=== PATIENT | male | born 1945 | race Caucasian/White ===

== ENCOUNTER 2017-11-15 04:43 | Emergency (ER) | payer MEDICARE, BC ==
[2017-11-15 04:51] VITALS: RESP 18
[2017-11-15 05:37] LABS: Appearance,Urine Cloudy (Clear); Bacteria,Urine Rare /hpf; Bilirubin,Urine Negative (Negative); Blood,Urine Large (Negative); Color,Urine Red; Glucose,Urine (UA) Negative (Negative); Ketones,Urine Negative (Negative); Leukocyte Esterase,Urine Small (Negative); Mucus,Urine Rare /hpf; Nitrite,Urine Negative (Negative); PH, Urine 6.5 (5.0-8.0); Protein,Urine 1+ (Negative); RBC,Urine >182 /hpf (0-5); Specific Gravity,Urine 1.019 (1.001-1.035); Squamous Epithelial Cell,Urine 1 /hpf (0-4); WBC,Urine >182 /hpf (0-5)
[2017-11-15 06:10] LABS: Basophils % (A) 1 %; Eosinophils # (A) 0.2 k/uL (0-0.7); Eosinophils % (A) 4 %; HCT 46.2 % (39.0-53.0); HGB 15.3 gm/dL (13.0-17.5); Lymphocytes % (A) 22 %; MCH 33.2 pg (25.0-35.0); MCHC 33.2 g/dL (31.0-37.0); MCV 100.2 fL (80.0-100.0); Mean Platelet Volume 7.1; Monocytes # (A) 0.3 k/uL (0-1.0); Monocytes % (A) 7 %; Neutrophils # (A) 2.9 k/uL (1.3-7.7); Neutrophils % (A) 63 %; Platelet Count 171 k/uL (150-450); RBC 4.61 m/uL (4.30-5.90); RDW 13.8 % (11.5-15.5); WBC 4.6 k/uL (3.8-10.6)
[2017-11-15 06:21] LABS: INR 1.1 (<1.2); Partial Thromboplastin Time 23.6 sec (22.0-30.0); Prothrombin Time 10.3 sec (9.0-12.0)
[2017-11-15 06:23] LABS: Anion Gap 10 mmol/L; Blood Urea Nitrogen 22 mg/dL (9-20); Calcium 9.4 mg/dL (8.4-10.2); Carbon Dioxide 26 mmol/L (22-30); Chloride 106 mmol/L (98-107); Glucose 105 mg/dL (74-99); Potassium 4.3 mmol/L (3.5-5.1); Sodium 142 mmol/L (137-145)
--- NOTE | 2017-11-15 06:26 | ED ---
Male Urogenital HPI - General Chief complaint: Urogenital Stated complaint: Male Time Seen by Provider: 11/15/17 05:34 Source: patient Mode of arrival: ambulatory Limitations: no limitations - History of Present Illness Initial comments: This patient is a 71-year-old man who presents to be evaluated for gross hematuria that started this morning. Patient states that he was using the bathroom this morning and noted that there was bright red blood in the urine. He denies history of this previously. He is not having any abdominal pain. He is denying urinary frequency or dysuria. No noted discharge. The patient denies fever or chills. No abdominal or flank pain. Patient denies use of anticoagulants. MD Complaint: other (Hematuria) Onset/Timin -: hour(s) Radiation: none Severity scale (1-10): 0 Worsens with: none Reports: denies other symptoms, blood in urine - Related Data Previous Rx's Medication Instructions Recorded Ciprofloxacin HCl [Cipro] 500 mg PO Q12HR #14 tablet 11/15/17 Allergies Allergy/AdvReac Type Severity Reaction Status Date / Time No Known Allergies Allergy Verified 11/15/17 04:51 Review of Systems ROS Statement: Those systems with pertinent positive or pertinent negative responses have been documented in the HPI. ROS Other: All systems not noted in ROS Statement are negative. Constitutional: Denies: fever, chills Respiratory: Denies: cough, dyspnea Cardiovascular: Denies: chest pain, palpitations, edema Gastrointestinal: Denies: abdominal pain, vomiting, diarrhea Genitourinary: Reports: hematuria. Denies: dysuria, frequency, discharge, testicular pain Musculoskeletal: Denies: back pain Skin: Denies: rash Hematological/Lymphatic: Denies: easy bleeding Past Medical History Past Medical History: No Reported History History of Any Multi-Drug Resistant Organisms: None Reported Past Surgical History: Appendectomy, Back Surgery, Tonsillectomy Additional Past Surgical History / Comment(s): oral surgery Past Psychological History: No Psychological Hx Reported Smoking Status: Never smoker Past Alcohol Use History: Occasional Past Drug Use History: None Reported General Exam Limitations: no limitations General appearance: alert, in no apparent distress Head exam: Present: atraumatic, normocephalic Respiratory exam: Present: normal lung sounds bilaterally. Absent: respiratory distress, wheezes, rales, rhonchi, stridor Cardiovascular Exam: Present: regular rate, normal rhythm, normal heart sounds. Absent: systolic murmur, diastolic murmur, rubs, gallop GI/Abdominal exam: Present: soft. Absent: distended, tenderness, guarding, rebound, mass Extremities exam: Present: normal inspection, normal capillary refill. Absent: pedal edema, calf tenderness Back exam: Present: normal inspection. Absent: CVA tenderness (R), CVA tenderness (L) Neurological exam: Present: alert Skin exam: Present: warm, dry, intact, normal color. Absent: rash Course Vital Signs 11/15/17 11/15/17 11/15/17 04:47 07:09 07:15 Temperature 97.8 F 98.8 F Pulse Rate 70 60 56 L Respiratory 18 18 18 Rate Blood Pressure 174/97 133/79 135/80 O2 Sat by Pulse 98 97 96 Oximetry Medical Decision Making - Medical Decision Making Patient is 71-year-old man presenting with painless hematuria. He is started on antibiotic course here given the white blood cells in the urine. The patient is otherwise asymptomatic. We discussed the CT findings in some detail. He will follow first with urology, regarding the bladder findings, and then also with the medicine doctor to have MRI of the pancreas finding, or with surgery as needed. Discussed appropriate return parameters as well. - Lab Data Result diagrams: 11/15/17 05:49 11/15/17 05:49 Lab Results 11/15/17 11/15/17 11/15/17 Range/Units 04:55 05:49 05:49 WBC 4.6 (3.8-10.6) k/uL RBC 4.61 (4.30-5.90) m/uL Hgb 15.3 (13.0-17.5) gm/dL Hct 46.2 (39.0-53.0) % MCV 100.2 H (80.0-100.0) fL MCH 33.2 (25.0-35.0) pg MCHC 33.2 (31.0-37.0) g/dL RDW 13.8 (11.5-15.5) % Plt Count 171 (150-450) k/uL Neutrophils % 63 % Lymphocytes % 22 % Monocytes % 7 % Eosinophils % 4 % Basophils % 1 % Neutrophils # 2.9 (1.3-7.7) k/uL Lymphocytes # 1.0 (1.0-4.8) k/uL Monocytes # 0.3 (0-1.0) k/uL Eosinophils # 0.2 (0-0.7) k/uL Basophils # 0.0 (0-0.2) k/uL PT (9.0-12.0) sec INR (<1.2) APTT (22.0-30.0) sec Sodium 142 (137-145) mmol/L Potassium 4.3 (3.5-5.1) mmol/L Chloride 106 (98-107) mmol/L Carbon Dioxide 26 (22-30) mmol/L Anion Gap 10 mmol/L BUN 22 H (9-20) mg/dL Creatinine 0.75 (0.66-1.25) mg/dL Est GFR (CKD-EPI)AfAm >90 (>60 ml/min/1.73 sqM) Est GFR (CKD-EPI)NonAf >90 (>60 ml/min/1.73 sqM) Glucose 105 H (74-99) mg/dL Calcium 9.4 (8.4-10.2) mg/dL Urine Color Red Urine Appearance Cloudy (Clear) Urine pH 6.5 (5.0-8.0) Ur Specific [place] 1.019 (1.001-1.035) Urine Protein 1+ H (Negative) Urine Glucose (UA) Negative (Negative) Urine Ketones Negative (Negative) Urine Blood Large H (Negative) Urine Nitrite Negative (Negative) Urine Bilirubin Negative (Negative) Urine Urobilinogen 2.0 (<2.0) mg/dL Ur Leukocyte Esterase Small H (Negative) Urine RBC >182 H (0-5) /hpf Urine WBC >182 H (0-5) /hpf Ur Squamous Epith Cells 1 (0-4) /hpf Urine Bacteria Rare H (None) /hpf Urine Mucus Rare H (None) /hpf 11/15/17 Range/Units 05:49 WBC (3.8-10.6) k/uL RBC (4.30-5.90) m/uL Hgb (13.0-17.5) gm/dL Hct (39.0-53.0) % MCV (80.0-100.0) fL MCH (25.0-35.0) pg MCHC (31.0-37.0) g/dL RDW (11.5-15.5) % Plt Count (150-450) k/uL Neutrophils % % Lymphocytes % % Monocytes % % Eosinophils % % Basophils % % Neutrophils # (1.3-7.7) k/uL Lymphocytes # (1.0-4.8) k/uL Monocytes # (0-1.0) k/uL Eosinophils # (0-0.7) k/uL Basophils # (0-0.2) k/uL PT 10.3 (9.0-12.0) sec INR 1.1 (<1.2) APTT 23.6 (22.0-30.0) sec Sodium (137-145) mmol/L Potassium (3.5-5.1) mmol/L Chloride (98-107) mmol/L Carbon Dioxide (22-30) mmol/L Anion Gap mmol/L BUN (9-20) mg/dL Creatinine (0.66-1.25) mg/dL Est GFR (CKD-EPI)AfAm (>60 ml/min/1.73 sqM) Est GFR (CKD-EPI)NonAf (>60 ml/min/1.73 sqM) Glucose (74-99) mg/dL Calcium (8.4-10.2) mg/dL Urine Color Urine Appearance (Clear) Urine pH (5.0-8.0) Ur Specific [place] (1.001-1.035) Urine Protein (Negative) Urine Glucose (UA) (Negative) Urine Ketones (Negative) Urine Blood (Negative) Urine Nitrite (Negative) Urine Bilirubin (Negative) Urine Urobilinogen (<2.0) mg/dL Ur Leukocyte Esterase (Negative) Urine RBC (0-5) /hpf Urine WBC (0-5) /hpf Ur Squamous Epith Cells (0-4) /hpf Urine Bacteria (None) /hpf Urine Mucus (None) /hpf Disposition Clinical Impression: Hematuria, Bladder mass, Cystic mass of pancreas Disposition: HOME SELF-CARE Condition: Fair Instructions: Hematuria (ED) Additional Instructions: As we discussed, follow-up with the urologist regarding the blood in the urine and the mass that we are seeing related to the bladder. The cystic mass of the pancreas also requires follow-up. We have provided the number for the surgeon on-call, however your insurance may require that he see their surgeon to further discuss this. Prescriptions: Ciprofloxacin HCl [Cipro] 500 mg PO Q12HR #14 tablet Is patient prescribed a controlled substance at d/c from ED?: No Referrals: Abimael Schneider MD [STAFF PHYSICIAN] - 1-2 days Morteza Foley MD [STAFF PHYSICIAN] - 1-2 days Luis Jacinto MD [REFERRING] - 1-2 days
--- NOTE | 2017-11-15 06:53 | CT ---
EXAM: CT Abdomen and Pelvis Without Intravenous Contrast CLINICAL HISTORY: ITS.REASON CT Reason: Pain TECHNIQUE: Axial computed tomography images of the abdomen and pelvis without intravenous contrast. CTDI is 11.7 mGy and DLP is 579.9 mGy-cm. This CT exam was performed using one or more of the following dose reduction techniques: automated exposure control, adjustment of the mA and/or kV according to patient size, and/or use of iterative reconstruction technique. COMPARISON: None. FINDINGS: Lung bases: Unremarkable. No mass. No consolidation. Mediastinum: Large hiatal hernia. ABDOMEN: Liver: Unremarkable. Gallbladder and bile ducts: Unremarkable. No calcified stones. No ductal dilation. Pancreas: Complex multiloculated cystic lesion in the region the pancreatic head measuring approximately 3.4 x 7.1 cm. No ductal dilation. Spleen: Unremarkable. No splenomegaly. Adrenals: Unremarkable. No mass. Kidneys and ureters: Multiple bilateral renal parapelvic cysts, more prominent on the left. There is also a large right renal cortical cyst measuring up to 5.3 cm with a associated peripheral cyst measuring up to 1.9 cm and then linear calcifications between the 2. Stomach and bowel: Bilateral inguinal hernias, fat-containing the left, containing small bowel on the right. No associated obstruction. Diverticulosis without evidence of diverticulitis. PELVIS: Appendix: Nonvisualization of the appendix. Bladder: Questionable nodular wall thickening versus mass along the right posterior aspect of the bladder wall measuring 1.8 x 2.7 cm. No stones. Reproductive: Enlarged prostate gland measuring up to 5.3 cm. ABDOMEN and PELVIS: Intraperitoneal space: Unremarkable. No free air. No significant fluid collection. Bones/joints: Age-indeterminate mild compression deformity of the T9 vertebral body without bony dorsal displacement. Soft tissues: See above. Vasculature: Unremarkable. No abdominal aortic aneurysm. Lymph nodes: Unremarkable. No enlarged lymph nodes. IMPRESSION: 1. Complex multiloculated cystic lesion in the region of the pancreatic head measuring approximately 3.4 x 7.1 cm. Further characterization with MRI/MRCP with contrast recommended. 2. Questionable nodular wall thickening versus mass along the right posterior aspect of the bladder wall measuring 1.8 x 2.7 cm. Further evaluation recommended. 3. Nonvisualization of the appendix. Please correlate with surgical history. 4. Bilateral inguinal hernias, fat-containing the left, containing small bowel on the right. No associated obstruction. No evidence of bowel inflammation. 5. Age-indeterminate mild compression deformity of the T9 vertebral body without bony dorsal displacement.
[2017-11-15] MEDS ORDERED: LEVOFLOXACIN 750 MG TAB PO STA (07:04)
[2017-11-15 07:09] VITALS: TEMP 98.8
[2017-11-15 07:17] VITALS: BP 135/80; PULSE 56
== END 2017-11-15 07:37 | disposition home or self-care (01) ==
LOC: EC 04:43
DX: K86.2 Cyst of pancreas (principal); N32.9 Bladder disorder, unspecified; Z90.49 Acquired absence of other specified parts of digestive tract
CPT/HCPCS: 36415; 74176; 80048; 81001; 85025; 85610; 85730; 99284

== ENCOUNTER → 2017-11-18 | Outpatient (CLI) | payer BC ==
--- NOTE | 2017-11-18 22:04 | CT ---
EXAMINATION TYPE: CT abdomen pelvis w con DATE OF EXAM: 11/18/2017 COMPARISON: 11/15/2017 INDICATION: Gross hematuria DLP: 2828 mGycm, Automated exposure control for dose reduction was used. CONTRAST: 100 ml mL of Isovue 300. Study performed with Oral Contrast TECHNIQUE: Axial images were obtained from above the diaphragm to the pubic rami in the axial plane a t 5 mm thick sections. Reconstructed images are reviewed on the computer in the coronal plane. FINDINGS: Limited CT sections are obtained the lung bases. The lung bases are clear. There is a large hiatal hernia present. CT ABDOMEN: Liver: Normal Spleen: Normal Pancreas: There is a large hypodensity within the inferior head of the pancreas measuring 7.1 x 6.3 c m. Differential could include pseudocyst formation. Cystic neoplasm and benign cystic processes of th e pancreas are within the differential Adrenal glands: The adrenal glands are normal. Gallbladder: Normal Kidneys: No masses are evident. Mild bilateral hydronephrosis is present. Peripelvic cysts are also p resent better demonstrated with delayed images. There is a large cyst at the inferior pole of the rig ht kidney measuring 5.5 cm. This measures 10 Hounsfield units. Smaller anterior cortical cyst at the mid to inferior pole left kidney measuring 2.5 cm and 0 Hounsfield units. Mild right hydroureter is p resent.. Aorta: Vascular calcification is within the aorta. Inferior vena cava: Normal. CT PELVIS: Loops of bowel within the abdomen and pelvis are normal. There are loops of bowel which are incom pletely distended or lack oral contrast limiting their evaluation. A few diverticuli are within the s igmoid colon. There is a right inguinal hernia which contains contrast-filled loops of small bowel. N o obstruction is evident. Appendix: Not identified. No suspicious inflammatory changes evident Urinary bladder: There is a hyperdense mass within the right posterior lateral urinary bladder. This is estimated to measure 3.0 x 1.7 cm based on current measurements. Genitourinary structures: Prostate is prominent and may has some inferior impression on the urinary b ladder. Osseous structures: No suspicious lytic or sclerotic lesions. Mild facet hypertrophy is present. IMPRESSIONS: 1. Urinary bladder mass right posterior lateral wall. 2. Mild right hydroureter and mild bilateral hydronephrosis. 3. Bilateral peripelvic cysts. 4. Complex cystic area within the head of the pancreas. Postcontrast imaging is nondefinitive. Differ ential remains pseudocyst, Benign and malignant pancreatic cysts.
== END | disposition home or self-care (01) ==
LOC: RADCTMAIN 11:59
PROVIDERS: ATTEND Urology
DX: N32.89 Other specified disorders of bladder (principal); N13.30 Unspecified hydronephrosis; N28.1 Cyst of kidney, acquired; K86.2 Cyst of pancreas
CPT/HCPCS: 74177; Q9967

== ENCOUNTER 2018-03-10 09:43 | Day surgery (SDC) | payer BC ==
[2018-03-08 14:48] VITALS: BMI 26.1
[~2018-03-10 09:43] MED LIST: LACTATED RINGERS 1,000 ML IV SCH; LIDOCAINE 1% 20 ML VIAL (10MG/ML) FOR IV START INTRADERMA PRN
[2018-03-10 10:42] VITALS: RESP 16; TEMP 99
[2018-03-10] MEDS ORDERED: PROPOFOL 10 MG/ML 20 ML VIAL IV ONE (11:25)
--- NOTE | 2018-03-10 11:54 | P.PCN ---
Date of Procedure: 03/10/18 Procedure(s) Performed: BRIEF HISTORY: Patient is a 72-year-old pleasant white male, scheduled for an elective colonoscopy as a part of gaining for colorectal neoplasia. PROCEDURE PERFORMED: Colonoscopy snare polypectomy. PREOPERATIVE DIAGNOSIS: Screening for colon cancer. IV sedation per Anesthesia. PROCEDURE: After informed consent was obtained, the patient, was brought into the endoscopy unit. IV sedation was administered by Anesthesia under continuous monitoring. Digital rectal examination was normal. Initially the Olympus CF- 160 flexible video colonoscope was then inserted in the rectum, gradually advanced into the cecum without any difficulty. Careful examination was performed as the scope was gradually being withdrawn. Ileocecal valve and the appendiceal orifice were visualized and appeared normal. Prep was excellent. In the base of the significant 2 polyps measuring 5 mm in size both of which were removed by snare polypectomy. In the ascending colon there was a 7 mm sessile polyp removed by snare polypectomy. Mucosa of the cecum, ascending colon, transverse colon, descending colon, sigmoid colon, and rectum appeared normal. Scattered sigmoid diverticulosis seen. Retroflexion was performed in the rectum and no lesions were seen. The patient tolerated the procedure well. IMPRESSION: 5 millimeters 2 sessile cecal polyp status post snare polypectomy 7 mm sessile ascending colon polyp status post polypectomy Scattered sigmoidal diverticulosis RECOMMENDATIONS: Findings of this examination were discussed with the patient is well as his family. He was advised to follow with the biopsy results. If the biopsy shows an adenoma he can have a repeat colonoscopy in 3-5 years.
[2018-03-10 12:56] VITALS: BP 169/95; PULSE 66
== END 2018-03-10 13:13 | disposition home or self-care (01) ==
LOC: ORWHC2ENDO 09:43
PROVIDERS: ATTEND Internal Medicine Gastroenterology
DX: Z12.11 Encounter for screening for malignant neoplasm of colon (principal); D12.0 Benign neoplasm of cecum; D12.2 Benign neoplasm of ascending colon; K57.30 Diverticulosis of large intestine without perforation or abscess without bleeding; Z85.51 Personal history of malignant neoplasm of bladder
CPT/HCPCS: 88305; 45385; J2704

== ENCOUNTER → 2020-08-21 | Outpatient (CLI) | payer OTHER ==
[2020-08-21 08:31] LABS: African American GFR (CKD) >90 (>60 ml/min/1.73 sqM); Blood Urea Nitrogen 19 mg/dL (9-20); Non-African American GFR(CKD) 88 (>60 ml/min/1.73 sqM)
--- NOTE | 2020-08-21 10:39 | CT ---
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 Delayed images through the kidneys and bladder were obt ained. Coronal/sagittal reconstructions performed. 3D reconstructions generated on a dedicated [employer] workstation. CT DLP: 2197.5 mGycm Automated exposure control for dose reduction was used. FINDINGS: Heart upper limits of normal in size without pericardial effusion. There is strandy bibasilar atelect asis. No pleural effusion. Sliding hiatal hernia redemonstrated, currently measuring small. Similar fluid along the lower paraes ophageal region of uncertain clinical significance. Slightly low attenuation hepatic parenchyma. There may be mild fatty infiltration. No focal lesion is seen. Portal venous system is patent. Interval cholecystectomy, resection of the patient's cystic pancreatic head mass, probable hepatic or al antrostomy, and gastrojejunostomy. There is dilatation of the jejunum just beyond the gastrojejuno stomy anastomosis up to 4.8 cm, probably on a chronic postsurgical basis. There is some nodular prominence and calcification versus surgical material at the head of the pancre as measuring 3.4 x 2.5 cm, possible blind end of a surgerized loop of small bowel. Follow-up recommen ded to exclude neoplasm. Regular adrenal glands within normal limits. Remainder of the pancreas is atrophic. Spleen enlarged at 15.1 cm, unchanged. Numerous bilateral parapelvic cysts. Cortical cyst measuring 2.9 cm anteriorly from the left kidney a nd large, mildly complex cyst anterior right kidney measuring up to 6.4 cm versus 6.1 cm, previously. Numerous additional subcentimeter hypodensities are present bilaterally suggesting cysts. No suspici ous renal lesion. Symmetric uptake and excretion of contrast from both kidneys. No suspicious filling defect within eit her or collecting system or along the course of either ureter. Aside from the jejunum just after the anastomosis, no additional dilated small bowel. No free fluid o r free air. No mesenteric or retroperitoneal lymphadenopathy. Mild to moderate stool burden. Left-sided colonic diverticulosis, greatest in the proximal sigmoid co ofe. No pericolic inflammatory change. There is a direct right inguinal hernia, small to moderate in size containing mesenteric fat and a co uple loops of nonobstructed small bowel. Mild circumferential bladder wall thickening. Prostate gland is enlarged at 5.2 cm wide. Soft tissue impresses on to the posterior bladder base. The previous bladder wall mass on the right no longer shilpa ntified. Bones: Mild degenerative change of the hips. Mild facet arthropathy lower lumbar spine. Mild anterior wedging T9. Some ankylosis across the posterior elements of the lower thoracic spine. These findings are chronic. IMPRESSION: 1. PREVIOUS RIGHT LATERAL BLADDER MASS IS NO LONGER SEEN. THERE IS MILD BLADDER WALL THICKENING THAT COULD REPRESENT CHRONIC BLADDER WALL HYPERTROPHY, CYSTITIS, OR POSTTREATMENT CHANGE. 2. MULTIPLE CYSTS IN THE BILATERAL KIDNEYS MEASURING UP TO 6.4 CM. THE DOMINANT 6.4 CM CYST IN THE RI GHT KIDNEY IS MILDLY COMPLEX WITH SOME INTERNAL THIN SEPTATIONS AND PREVIOUSLY MEASURED 6.1 CM IN 201 8. PARAPELVIC CYSTS ARE ALSO PRESENT. 3. NO SUSPICIOUS RENAL LESION OR SUSPICIOUS LESION SEEN ALONG THE URETERS. 4. NODULAR SOFT TISSUE DENSITY IN THE REGION OF THE PANCREATIC HEAD MEASURING 3.4 X 2.5 CM SUSPECTED TO REPRESENT THE BLIND END OF A SURGERIZED LOOP OF SMALL BOWEL FOLLOWING RESECTION THE PATIENT'S PREV IOUS CYSTIC PANCREATIC HEAD MASS. 3 - 6 MONTH FOLLOW-UP CT TO ENSURE STABILITY. CONSIDER CORRELATION WITH ANY AVAILABLE OUTSIDE PRIORS THAT WERE PERFORMED AFTER THE PATIENT'S SURGERY. 5. PROSTATOMEGALY AT 5.2 CM. SMALL TO MODERATE SIZED RIGHT INGUINAL HERNIA CONTAINING A COUPLE LOOPS OF NONOBSTRUCTED SMALL BOWEL. LEFT-SIDED COLONIC DIVERTICULOSIS.
== END | disposition home or self-care (01) ==
LOC: RADCTMAIN 07:51
PROVIDERS: ATTEND Urology
DX: N28.89 Other specified disorders of kidney and ureter (principal); N40.0 Benign prostatic hyperplasia without lower urinary tract symptoms; K57.30 Diverticulosis of large intestine without perforation or abscess without bleeding; K40.90 Unilateral inguinal hernia, without obstruction or gangrene, not specified as recurrent
CPT/HCPCS: 82565; 84520; 74178; 36415; 74400; Q9967

== ENCOUNTER → 2023-07-13 | Outpatient (CLI) | payer OTHER, MEDICARE ==
--- NOTE | 2023-07-13 14:28 | XR ---
EXAMINATION TYPE: XR ankle complete RT DATE OF EXAM: 07/13/2023 COMPARISON: None HISTORY: Pain TECHNIQUE: 3 view right ankle FINDINGS: Ankle mortise is intact. No acute fracture or dislocation is evident. Tiny secondary ossifi cation centers inferior to the medial malleolus. Soft tissues appear within normal limits. Vascular c alcification is present. IMPRESSION: 1. No acute osseous abnormality right ankle
== END | disposition home or self-care (01) ==
LOC: RADXRMAIN 13:41
PROVIDERS: ATTEND Family Medicine
DX: M25.571 Pain in right ankle and joints of right foot (principal)

== ENCOUNTER → 2023-08-12 | Outpatient (CLI) | payer OTHER ==
[2023-08-12 16:23] LABS: African American GFR (CKD) 88 (>60 ml/min/1.73 sqM); Blood Urea Nitrogen 30 mg/dL (9-20); Non-African American GFR(CKD) 76 (>60 ml/min/1.73 sqM)
--- NOTE | 2023-08-13 12:05 | CT ---
EXAMINATION TYPE: CT urogram wo/w con CT DLP: 3699 mGycm, Automated exposure control for dose reduction was used. DATE OF EXAM: 08/12/2023 5:24 PM COMPARISON: 08/21/2020. CLINICAL INDICATION:Male, 77 years old with history of C67.9 MALIGNANT NEOPLASM OF BLADDER; PHH, piyush gnant neoplasm of bladder TECHNIQUE: Urogram with imaging of the abdomen and pelvis. Coronal and sagittal reformats were performed. 2D and 3D reconstructions are performed to assist visualization of the urinary tract on a separate workstat ion. Contrast used:100 mL of Isovue 300 without and with IV Contrast, Oral contrast used: None. FINDINGS: LOWER CHEST: No significant findings. GENITOURINARY: RIGHT KIDNEY AND URETER: No hydronephrosis or hydroureter. No renal mass or other lesions. No urothel ial lesions: no filling defect, dilation, stricture or wall thickening. r right renal cystic lesion w ith peripheral calcification measuring 64 x 58 with possible thin septations versus adjacent cysts. N onobstructing calculus measuring 4 mm. LEFT KIDNEY AND URETER: Nonobstructing calculi measuring up to 4 mm. Peripelvic renal cysts noted. Re nal cortical renal cysts also present. No hydronephrosis or hydroureter. No renal mass or other lesio ns. No urothelial lesions: no filling defect, dilation, stricture or wall thickening. URINARY BLADDER: Well distended. Limited evaluation secondary to partial filling of the bladder with excreted IV contrast. No calculi or obvious mass. REPRODUCTIVE: Prostate gland is enlarged up to 5.5 cm transverse dimension. ABDOMEN LIVER: Unremarkable. GALLBLADDER AND BILE DUCTS: Unremarkable PANCREAS: Unremarkable. SPLEEN: Unremarkable. ADRENAL GLANDS: Unremarkable. STOMACH AND BOWEL: . No evidence of bowel obstruction. Postsurgical changes to the gastric lumen. Sca ttered colonic diverticula. PERITONEUM: No evidence of pneumoperitoneum, free fluid, or adenopathy. VASCULATURE: No evidence of aortic aneurysm. MUSCULOSKELETAL: No acute osseous abnormalities LYMPH NODES: No gross evidence for lymphadenopathy. SOFT TISSUE/ABDOMINAL WALL: Bilateral fat-containing inguinal hernias. IMPRESSION: 1. No evidence of urolithiasis or renal/urothelial neoplasm. No bladder wall mass identified. 2. Nonobstructing bilateral renal foci. 3. Bosniak type II right renal cyst with peripheral calcification. 4. Prostatomegaly, correlate with serum PSA. 5. Colonic diverticulosis.
== END | disposition home or self-care (01) ==
LOC: RADCTMAIN 15:27
PROVIDERS: ATTEND Urology
DX: K57.30 Diverticulosis of large intestine without perforation or abscess without bleeding (principal); C67.9 Malignant neoplasm of bladder, unspecified; N40.0 Benign prostatic hyperplasia without lower urinary tract symptoms; N28.1 Cyst of kidney, acquired; N28.89 Other specified disorders of kidney and ureter
CPT/HCPCS: 82565; 84520; 74178; 36415; 74400; Q9967

== ENCOUNTER 2023-08-14 18:32 | Inpatient (IN) | payer OTHER, MEDICARE ==
--- NOTE | 2023-08-14 19:15 | ED ---
General Adult HPI - General Source: patient, RN notes reviewed Mode of arrival: ambulatory Limitations: no limitations <Shantel Beavers - Last Filed: 08/14/23 19:22> - General Source: RN notes reviewed, old records reviewed, Caregiver Mode of arrival: ambulatory Limitations: no limitations - History of Present Illness -: week(s) Consistency: constant Improves with: none Worsens with: none Associated Symptoms: confusion, shortness of breath <Neeraj Wagoner - Last Filed: 08/24/23 23:48> - General Stated complaint: alt mental Time Seen by Provider: 08/14/23 19:12 - History of Present Illness Initial comments: Patient is a 77-year-old male presenting to the ER with a chief complaint of altered mental status. providing past medical history and HPI. She reports he was diagnosed with pneumonia a week ago. Prescribed steroids and amoxicillin. He is still currently taking amoxicillin. She states yesterday he did not get out of bed which is very unlike him. Patient is also complaining of abdominal pain. (Shantel Beavers) This is a 77-year-old male to the ER for evaluation of altered mental status, recent diagnosed with pneumonia persistently feeling well currently on amoxicillin but not acting himself per family. (Neeraj Wagoner) - Related Data Home Medications Medication Instructions Recorded Confirmed Aspirin [Adult Low Dose Aspirin EC] 81 mg PO DAILY 08/04/22 08/14/23 Tamsulosin [Flomax] 0.4 mg PO DAILY 08/04/22 08/15/23 Betamethasone Dipropionate 1 applic TOPICAL DIRECTED PRN 08/14/23 08/14/23 [Diprolene 0.05% Cream (GEQ)] Cholecalciferol [Vitamin D3 (25 25 mcg PO BID 08/14/23 08/14/23 Mcg = 1000 Iu)] Previous Rx's Medication Instructions Recorded Amoxic-Pot Clav 875-125Mg 1 tab PO BID 10 Days #20 tab 08/18/23 [Augmentin 875-125] Atorvastatin [Lipitor] 40 mg PO DAILY #30 tablet 08/18/23 Clopidogrel [Plavix] 75 mg PO DAILY #30 tab 08/18/23 Allergies Allergy/AdvReac Type Severity Reaction Status Date / Time No Known Allergies Allergy Verified 08/14/23 22:15 Review of Systems ROS Other: All systems not noted in ROS Statement are negative. <Shantel Beavers - Last Filed: 08/14/23 19:22> ROS Other: All systems not noted in ROS Statement are negative. <Neeraj Wagoner - Last Filed: 08/24/23 23:48> ROS Statement: Those systems with pertinent positive or pertinent negative responses have been documented in the HPI. Past Medical History Past Medical History: Cancer Additional Past Medical History / Comment(s): BLADDER CANCER History of Any Multi-Drug Resistant Organisms: None Reported Past Surgical History: Appendectomy, Back Surgery, Bladder Surgery, Tonsillectomy Additional Past Surgical History / Comment(s): oral surgery Past Anesthesia/Blood Transfusion Reactions: No Reported Reaction Past Psychological History: No Psychological Hx Reported Past Alcohol Use History: Occasional Past Drug Use History: None Reported - Past Family History Father Family Medical History: Cancer Additional Family Medical History / Comment(s): BLADDER CANCER <Shantel Beavers - Last Filed: 08/14/23 19:22> General Exam <DellShantel yoo - Last Filed: 08/14/23 19:22> General appearance: alert, in no apparent distress Head exam: Present: atraumatic, normocephalic, normal inspection Eye exam: Present: normal appearance, PERRL, EOMI. Absent: scleral icterus, conjunctival injection, periorbital swelling ENT exam: Present: normal exam, mucous membranes moist Neck exam: Present: normal inspection. Absent: tenderness, meningismus, lymphadenopathy Respiratory exam: Present: normal lung sounds bilaterally. Absent: respiratory distress, wheezes, rales, rhonchi, stridor Cardiovascular Exam: Present: regular rate, normal rhythm, normal heart sounds. Absent: systolic murmur, diastolic murmur, rubs, gallop, clicks GI/Abdominal exam: Present: soft, normal bowel sounds. Absent: distended, tenderness, guarding, rebound, rigid Extremities exam: Present: normal inspection, full ROM, normal capillary refill. Absent: tenderness, pedal edema, joint swelling, calf tenderness Back exam: Present: normal inspection Neurological exam: Present: alert, oriented X3, CN II-XII intact Psychiatric exam: Present: normal affect, normal mood Skin exam: Present: warm, dry, intact, normal color. Absent: rash <Neeraj Wagoner - Last Filed: 08/24/23 23:48> - General Exam Comments Initial Comments: Visual Physical Exam Vital signs reviewed General: Ill-appearing, mildly confused Head: Normocephalic, atraumatic Eyes: PERRLA, EOMI ENT: Airway patent Chest: Nonlabored breathing Skin: No visual rash, normal skin tone Neuro: Alert and oriented 3 Musculoskeletal: No gross abnormalities (Shantel Beavers) Course <Neeraj Wagoner - Last Filed: 08/24/23 23:48> Vital Signs 08/14/23 08/14/23 08/14/23 19:08 21:20 21:48 Temperature 103.0 F H Pulse Rate 77 67 Pulse Rate [ Pulse Oximetery ] Respiratory 20 20 18 Rate Blood Pressure 143/70 124/63 Blood Pressure [Left Arm Supine] O2 Sat by Pulse 96 94 L Oximetry 08/14/23 08/14/23 08/15/23 23:16 23:58 04:00 Temperature 100.0 F H Pulse Rate 58 L 62 Pulse Rate [ Pulse Oximetery ] Respiratory 16 18 Rate Blood Pressure 110/64 129/73 Blood Pressure [Left Arm Supine] O2 Sat by Pulse 96 96 Oximetry 08/15/23 08/15/23 08/15/23 08:35 11:35 15:46 Temperature 99.3 F 99.0 F Pulse Rate Pulse Rate [ 65 58 L Pulse Oximetery ] Respiratory 20 20 Rate Blood Pressure Blood Pressure 142/78 140/69 [Left Arm Supine] O2 Sat by Pulse 96 96 95 Oximetry 08/15/23 08/16/23 08/16/23 20:00 00:00 04:15 Temperature 98.8 F 99.1 F 100.3 F H Pulse Rate Pulse Rate [ 58 L 62 58 L Pulse Oximetery ] Respiratory 20 20 20 Rate Blood Pressure Blood Pressure 135/65 143/62 139/72 [Left Arm Supine] O2 Sat by Pulse 93 L 93 L 94 L Oximetry 08/16/23 08/16/23 08/16/23 06:00 08:00 13:47 Temperature 99.3 F 98.8 F Pulse Rate Pulse Rate [ 53 L 53 L Pulse Oximetery ] Respiratory 17 17 Rate Blood Pressure Blood Pressure 111/61 110/56 [Left Arm Supine] O2 Sat by Pulse 97 Oximetry 08/16/23 08/16/23 16:04 17:46 Temperature 101.1 F H 99.1 F Pulse Rate 56 L 51 L Pulse Rate [ Pulse Oximetery ] Respiratory 20 20 Rate Blood Pressure 120/66 108/59 Blood Pressure [Left Arm Supine] O2 Sat by Pulse 97 93 L Oximetry - Reevaluation(s) Reevaluation #1: 08/14/23 20:37 Medical records reviewed (Neeraj Wagoner) Reevaluation #2: 08/14/23 20:37 Patient symptoms are improved (Neeraj Wagoner) Reevaluation #3: 08/14/23 20:38 Patient informed of results and questions answered (Neeraj Wagoner) Reevaluation #4: Was pt. sent in by a medical professional or institution ([facility], [employer], urgent care, hospital, or retirement...) When possible be specific @ -no Did you speak to anyone other than the patient for history (EMS, parent, family, police, friend...)? What history was obtained from this source @ -no Did you review nursing and triage notes (agree or disagree)? Why? @ -agree Are old charts reviewed (outside hosp., previous admission, EMS record, old EKG, old radiological studies, urgent care reports/EKG's, retirement records)? Report findings @ -yes Differential Diagnosis (chest pain, altered mental status, abdominal pain women, abdominal pain men, vaginal bleeding, weakness, fever, dyspnea, syncope, headache, dizziness, GI bleed, back pain, seizure, CVA, palpatations, mental health, musculoskeletal)? @ -prior EKG interpreted by me (3pts min.). @ -yes X-rays interpreted by me (1pt min.). @ -yes negative for acute disease CT interpreted by me (1pt min.). @ -no U/S interpreted by me (1pt. min.). @ -no What testing was considered but not performed or refused? (CT, X-rays, U/S, labs)? Why? @ -none What meds were considered but not given or refused? Why? @ -none Did you discuss the management of the patient with other professionals (professionals i.e. , [facility], [employer], lab, RT, psych nurse, social worker aide, salvage supervisor, teacher, family preservation officer, case loader operator)? Give summary @ -no Was smoking cessation discussed for >3mins.? @ -no Was critical care preformed (if so, how long)? @ -no Were there social determinants of health that impacted care today? How? (Homelessness, low income, unemployed, alcoholism, drug addiction, transportation, low edu. Level, literacy, decrease access to med. care, usp, rehab)? @ -none Was there de-escalation of care discussed even if they declined (Discuss DNR or withdrawal of care, Hospice)? DNR status @ -no What co-morbidities impacted this encounter? (DM, HTN, Smoking, COPD, CAD, Cancer, CVA, ARF, Chemo, Hep., AIDS, mental health diagnosis, sleep apnea, morbid obesity)? @ -none Was patient admitted / discharged? Hospital course, mention meds given and route, prescriptions, significant lab abnormalities, going to OR and other pertinent info. @ - 77 male to ER for altered mental status does have significant fever here in the ER. Patient will be admitted for fever control and monitoring of possibility of recent stroke and CVA secondary to CT scan findings subacute, not a tPA candidate secondary to unknown onset Admitted Undiagnosed new problem with uncertain prognosis? @ -no Drug Therapy requiring intensive monitoring for toxicity (Heparin, Nitro, Insulin, Cardizem)? @ -no Were any procedures done? @ -no Diagnosis/symptom? @ -Fever and sepsis with Acute, or Chronic, or Acute on Chronic? @ -Acute Uncomplicated (without systemic symptoms) or Complicated (systemic symptoms)? @ -Complicated Side effects of treatment? @ -no Exacerbation, Progression, or Severe Exacerbation? @ -exacerbation Poses a threat to life or bodily function? How? (Chest pain, USA, HI, pneumonia, PE, COPD, DKA, ARF, appy, cholecystitis, CVA, Diverticulitis, Homicidal, Suicidal, threat to staff... and all critical care pts) @ -yes extremes of age with fever (Neeraj Wagoenr) Reevaluation #5: Differential Fever: Pneumonia, viral URI, endocarditis, myocarditis, pericarditis, otitis, si nusitis, peritonsillar Abscess, retropharyngeal Abscess, epiglottitis, peritonitis, appendicitis, Malrey cystitis, diverticulitis, hepatitis, colitis, UTI, PID, TOA, pyelonephritis, prostatitis, epididymitis, meningitis, encephalitis, pulmonary embolism, CVA, thyroid storm, pancreatitis, adrenal sadie is, cavernous sinus thrombosis, this is not meant to be an all-inclusive list. Differential Weakness: Hypoglycemia, shock, sepsis, hyponatremia, anemia, infection, HI, ETOH, adverse medicine reaction, overdose, stroke, this is not meant to be an all-inclusive list. Differential Altered Mental Status: Hypoglycemia, DKA, hypercapnia, ETOH, overdose, CO poisoning, trauma, myxedema coma, HTN encephalopathy, infection, encephalitis, psychosis, intercranial hemorrhage, hepatic encephalopathy, meningitis, CVA, this is not meant to be an all-inclusive list (Neeraj Wagoner) - Consultations Consultation #1: Poke with sound who agrees to admit this patient (Neeraj Wagoner) EKG Findings - EKG Comments: EKG Findings:: EKG is sinus 76 VT 168 QRS 107 QTc 399 - EKG Results: EKG: interpreted by ERMD <Neeraj Wagoner - Last Filed: 08/24/23 23:48> Medical Decision Making <Shantel Beavers - Last Filed: 08/14/23 19:22> - Lab Data Result diagrams: 08/18/23 07:48 08/18/23 07:48 - EKG Data -: EKG Interpreted by Vt - Radiology Data Radiology results: report reviewed (CT brain is negative for acute disease, chest x-ray is negative for acute disease), image reviewed <Neeraj Wagoner - Last Filed: 08/24/23 23:48> - Medical Decision Making I performed the quick note portion of this chart. Electronically signed by Shantel Beavers PA-C (Shantel Beavers) 77 male to ER for altered mental status does have significant fever here in the ER. Patient will be admitted for fever control and monitoring of possibility of recent stroke and CVA secondary to CT scan findings subacute, not a tPA candidate secondary to unknown onset (Neeraj Wagoner) - Lab Data Lab Results 08/14/23 08/14/23 08/14/23 Range/Units 19:10 19:35 19:35 WBC 13.6 H (3.8-10.6) k/uL RBC 4.55 (4.30-5.90) m/uL Hgb 15.3 (13.0-17.5) gm/dL Hct 46.1 (39.0-53.0) % MCV 101.4 H (80.0-100.0) fL MCH 33.8 (25.0-35.0) pg MCHC 33.3 (31.0-37.0) g/dL RDW 13.0 (11.5-15.5) % Plt Count 185 (150-450) k/uL MPV 9.3 Neutrophils % % Lymphocytes % % Monocytes % % Eosinophils % % Basophils % % Neutrophils # (1.3-7.7) k/uL Lymphocytes # (1.0-4.8) k/uL Monocytes # (0-1.0) k/uL Eosinophils # (0-0.7) k/uL Basophils # (0-0.2) k/uL Macrocytosis Sodium (137-145) mmol/L Potassium (3.5-5.1) mmol/L Chloride (98-107) mmol/L Carbon Dioxide (22-30) mmol/L Anion Gap mmol/L BUN (9-20) mg/dL Creatinine (0.66-1.25) mg/dL Est GFR (CKD-EPI)AfAm (>60 ml/min/1.73 sqM) Est GFR (CKD-EPI)NonAf (>60 ml/min/1.73 sqM) Glucose (74-99) mg/dL Estimated Ave Glu mg/dL mg/dL Hemoglobin A1c (<=6.0) % Osmolality (275-295) mOsm/kg Plasma Lactic Acid Fox 1.4 (0.7-2.0) mmol/L Calcium (8.4-10.2) mg/dL Phosphorus (2.5-4.5) mg/dL Magnesium (1.6-2.3) mg/dL Total Bilirubin (0.2-1.3) mg/dL AST (17-59) U/L ALT (4-49) U/L Alkaline Phosphatase (38-126) U/L C-Reactive Protein (<1.0) mg/dL NT-Pro-B Natriuret Pep pg/mL Total Protein (6.3-8.2) g/dL Albumin (3.5-5.0) g/dL Triglycerides (0.00-149.00) mg/dL Cholesterol (0.00-200.00) mg/dL LDL Cholesterol, Calc (0.0-131.0) mg/dL VLDL Cholesterol, Calc (5.00-40.00) mg/dL HDL Cholesterol (40.00-60.00) mg/dL Cholesterol/HDL Ratio Ratio Lipase (23-300) U/L Vitamin B12 (200.0-944.0) pg/mL Folate (4.40-31.00) ng/mL Procalcitonin (0.02-0.09) ng/mL TSH (0.465-4.680) mIU/L Urine Color Urine Appearance (Clear) Urine pH (5.0-8.0) Ur Specific [place] (1.001-1.035) Urine Protein (Negative) Urine Glucose (UA) (Negative) Urine Ketones (Negative) Urine Blood (Negative) Urine Nitrite (Negative) Urine Bilirubin (Negative) Urine Urobilinogen (<2.0) mg/dL Ur Leukocyte Esterase (Negative) Urine RBC (0-5) /hpf Urine WBC (0-5) /hpf Urine Mucus (None) /hpf Urine Osmolality (400-1100) mOsm/kg Ur Random Sodium (40-220) mmol/L Influenza Type A (PCR) Not Detected (Not Detectd) Influenza Type B (PCR) Not Detected (Not Detectd) RSV (PCR) Not Detected (Not Detectd) SARS-CoV-2 (PCR) Not Detected (Not Detectd) 08/14/23 08/14/23 08/15/23 Range/Units 20:30 20:30 00:49 WBC (3.8-10.6) k/uL RBC (4.30-5.90) m/uL Hgb (13.0-17.5) gm/dL Hct (39.0-53.0) % MCV (80.0-100.0) fL MCH (25.0-35.0) pg MCHC (31.0-37.0) g/dL RDW (11.5-15.5) % Plt Count (150-450) k/uL MPV Neutrophils % % Lymphocytes % % Monocytes % % Eosinophils % % Basophils % % Neutrophils # (1.3-7.7) k/uL Lymphocytes # (1.0-4.8) k/uL Monocytes # (0-1.0) k/uL Eosinophils # (0-0.7) k/uL Basophils # (0-0.2) k/uL Macrocytosis Sodium 130 L (137-145) mmol/L Potassium 4.2 (3.5-5.1) mmol/L Chloride 97 L (98-107) mmol/L Carbon Dioxide 25 (22-30) mmol/L Anion Gap 8 mmol/L BUN 24 H (9-20) mg/dL Creatinine 0.89 (0.66-1.25) mg/dL Est GFR (CKD-EPI)AfAm >90 (>60 ml/min/1.73 sqM) Est GFR (CKD-EPI)NonAf 83 (>60 ml/min/1.73 sqM) Glucose 161 H (74-99) mg/dL Estimated Ave Glu mg/dL mg/dL Hemoglobin A1c (<=6.0) % Osmolality (275-295) mOsm/kg Plasma Lactic Acid Fox (0.7-2.0) mmol/L Calcium 8.9 (8.4-10.2) mg/dL Phosphorus 3.3 (2.5-4.5) mg/dL Magnesium 2.1 (1.6-2.3) mg/dL Total Bilirubin 2.2 H (0.2-1.3) mg/dL AST 22 (17-59) U/L ALT 24 (4-49) U/L Alkaline Phosphatase 72 (38-126) U/L C-Reactive Protein (<1.0) mg/dL NT-Pro-B Natriuret Pep 631 pg/mL Total Protein 6.7 (6.3-8.2) g/dL Albumin 4.2 (3.5-5.0) g/dL Triglycerides (0.00-149.00) mg/dL Cholesterol (0.00-200.00) mg/dL LDL Cholesterol, Calc (0.0-131.0) mg/dL VLDL Cholesterol, Calc (5.00-40.00) mg/dL HDL Cholesterol (40.00-60.00) mg/dL Cholesterol/HDL Ratio Ratio Lipase (23-300) U/L Vitamin B12 (200.0-944.0) pg/mL Folate (4.40-31.00) ng/mL Procalcitonin 0.06 (0.02-0.09) ng/mL TSH 0.897 (0.465-4.680) mIU/L Urine Color Yellow Urine Appearance Clear (Clear) Urine pH 6.0 (5.0-8.0) Ur Specific [place] 1.024 (1.001-1.035) Urine Protein Trace H (Negative) Urine Glucose (UA) 1+ H (Negative) Urine Ketones Negative (Negative) Urine Blood Trace H (Negative) Urine Nitrite Negative (Negative) Urine Bilirubin Negative (Negative) Urine Urobilinogen <2.0 (<2.0) mg/dL Ur Leukocyte Esterase Negative (Negative) Urine RBC 3 (0-5) /hpf Urine WBC 1 (0-5) /hpf Urine Mucus Few H (None) /hpf Urine Osmolality (400-1100) mOsm/kg Ur Random Sodium (40-220) mmol/L Influenza Type A (PCR) (Not Detectd) Influenza Type B (PCR) (Not Detectd) RSV (PCR) (Not Detectd) SARS-CoV-2 (PCR) (Not Detectd) 08/15/23 08/15/23 08/15/23 Range/Units 14:32 14:32 14:32 WBC 11.4 H (3.8-10.6) k/uL RBC 4.08 L (4.30-5.90) m/uL Hgb 13.7 (13.0-17.5) gm/dL Hct 41.7 (39.0-53.0) % MCV 102.3 H (80.0-100.0) fL MCH 33.6 (25.0-35.0) pg MCHC 32.8 (31.0-37.0) g/dL RDW 12.9 (11.5-15.5) % Plt Count 149 L (150-450) k/uL MPV 8.5 Neutrophils % 93 % Lymphocytes % 3 % Monocytes % 3 % Eosinophils % 0 % Basophils % 0 % Neutrophils # 10.6 H (1.3-7.7) k/uL Lymphocytes # 0.4 L (1.0-4.8) k/uL Monocytes # 0.3 (0-1.0) k/uL Eosinophils # 0.0 (0-0.7) k/uL Basophils # 0.0 (0-0.2) k/uL Macrocytosis Slight Sodium 130 L (137-145) mmol/L Potassium 4.0 (3.5-5.1) mmol/L Chloride 101 (98-107) mmol/L Carbon Dioxide 22 (22-30) mmol/L Anion Gap 7 mmol/L BUN 25 H (9-20) mg/dL Creatinine 0.80 (0.66-1.25) mg/dL Est GFR (CKD-EPI)AfAm >90 (>60 ml/min/1.73 sqM) Est GFR (CKD-EPI)NonAf 87 (>60 ml/min/1.73 sqM) Glucose 132 H (74-99) mg/dL Estimated Ave Glu mg/dL 128 mg/dL Hemoglobin A1c 6.1 H (<=6.0) % Osmolality (275-295) mOsm/kg Plasma Lactic Acid Fox (0.7-2.0) mmol/L Calcium 7.8 L (8.4-10.2) mg/dL Phosphorus 2.4 L (2.5-4.5) mg/dL Magnesium 2.1 (1.6-2.3) mg/dL Total Bilirubin 1.2 (0.2-1.3) mg/dL AST 19 (17-59) U/L ALT 18 (4-49) U/L Alkaline Phosphatase 62 (38-126) U/L C-Reactive Protein (<1.0) mg/dL NT-Pro-B Natriuret Pep pg/mL Total Protein 5.3 L (6.3-8.2) g/dL Albumin 2.8 L (3.5-5.0) g/dL Triglycerides 48.50 (0.00-149.00) mg/dL Cholesterol 75.00 (0.00-200.00) mg/dL LDL Cholesterol, Calc 23.1 (0.0-131.0) mg/dL VLDL Cholesterol, Calc 9.70 (5.00-40.00) mg/dL HDL Cholesterol 42.20 (40.00-60.00) mg/dL Cholesterol/HDL Ratio 1.78 Ratio Lipase 20 L (23-300) U/L Vitamin B12 (200.0-944.0) pg/mL Folate (4.40-31.00) ng/mL Procalcitonin (0.02-0.09) ng/mL TSH (0.465-4.680) mIU/L Urine Color Urine Appearance (Clear) Urine pH (5.0-8.0) Ur Specific [place] (1.001-1.035) Urine Protein (Negative) Urine Glucose (UA) (Negative) Urine Ketones (Negative) Urine Blood (Negative) Urine Nitrite (Negative) Urine Bilirubin (Negative) Urine Urobilinogen (<2.0) mg/dL Ur Leukocyte Esterase (Negative) Urine RBC (0-5) /hpf Urine WBC (0-5) /hpf Urine Mucus (None) /hpf Urine Osmolality (400-1100) mOsm/kg Ur Random Sodium (40-220) mmol/L Influenza Type A (PCR) (Not Detectd) Influenza Type B (PCR) (Not Detectd) RSV (PCR) (Not Detectd) SARS-CoV-2 (PCR) (Not Detectd) 08/15/23 08/15/23 08/16/23 Range/Units 14:32 14:32 06:36 WBC 10.4 (3.8-10.6) k/uL RBC 3.62 L (4.30-5.90) m/uL Hgb 12.3 L (13.0-17.5) gm/dL Hct 36.5 L (39.0-53.0) % MCV 100.9 H (80.0-100.0) fL MCH 34.1 (25.0-35.0) pg MCHC 33.8 (31.0-37.0) g/dL RDW 12.8 (11.5-15.5) % Plt Count 146 L (150-450) k/uL MPV 8.6 Neutrophils % 84 % Lymphocytes % 7 % Monocytes % 6 % Eosinophils % 0 % Basophils % 0 % Neutrophils # 8.7 H (1.3-7.7) k/uL Lymphocytes # 0.8 L (1.0-4.8) k/uL Monocytes # 0.7 (0-1.0) k/uL Eosinophils # 0.0 (0-0.7) k/uL Basophils # 0.0 (0-0.2) k/uL Macrocytosis Sodium (137-145) mmol/L Potassium (3.5-5.1) mmol/L Chloride (98-107) mmol/L Carbon Dioxide (22-30) mmol/L Anion Gap mmol/L BUN (9-20) mg/dL Creatinine (0.66-1.25) mg/dL Est GFR (CKD-EPI)AfAm (>60 ml/min/1.73 sqM) Est GFR (CKD-EPI)NonAf (>60 ml/min/1.73 sqM) Glucose (74-99) mg/dL Estimated Ave Glu mg/dL mg/dL Hemoglobin A1c (<=6.0) % Osmolality (275-295) mOsm/kg Plasma Lactic Acid Fox (0.7-2.0) mmol/L Calcium (8.4-10.2) mg/dL Phosphorus (2.5-4.5) mg/dL Magnesium (1.6-2.3) mg/dL Total Bilirubin (0.2-1.3) mg/dL AST (17-59) U/L ALT (4-49) U/L Alkaline Phosphatase (38-126) U/L C-Reactive Protein (<1.0) mg/dL NT-Pro-B Natriuret Pep pg/mL Total Protein (6.3-8.2) g/dL Albumin (3.5-5.0) g/dL Triglycerides (0.00-149.00) mg/dL Cholesterol (0.00-200.00) mg/dL LDL Cholesterol, Calc (0.0-131.0) mg/dL VLDL Cholesterol, Calc (5.00-40.00) mg/dL HDL Cholesterol (40.00-60.00) mg/dL Cholesterol/HDL Ratio Ratio Lipase (23-300) U/L Vitamin B12 395.0 (200.0-944.0) pg/mL Folate 12.10 (4.40-31.00) ng/mL Procalcitonin (0.02-0.09) ng/mL TSH (0.465-4.680) mIU/L Urine Color Urine Appearance (Clear) Urine pH (5.0-8.0) Ur Specific [place] (1.001-1.035) Urine Protein (Negative) Urine Glucose (UA) (Negative) Urine Ketones (Negative) Urine Blood (Negative) Urine Nitrite (Negative) Urine Bilirubin (Negative) Urine Urobilinogen (<2.0) mg/dL Ur Leukocyte Esterase (Negative) Urine RBC (0-5) /hpf Urine WBC (0-5) /hpf Urine Mucus (None) /hpf Urine Osmolality (400-1100) mOsm/kg Ur Random Sodium (40-220) mmol/L Influenza Type A (PCR) (Not Detectd) Influenza Type B (PCR) (Not Detectd) RSV (PCR) (Not Detectd) SARS-CoV-2 (PCR) (Not Detectd) 08/16/23 08/16/23 08/16/23 Range/Units 06:36 06:36 06:36 WBC (3.8-10.6) k/uL RBC (4.30-5.90) m/uL Hgb (13.0-17.5) gm/dL Hct (39.0-53.0) % MCV (80.0-100.0) fL MCH (25.0-35.0) pg MCHC (31.0-37.0) g/dL RDW (11.5-15.5) % Plt Count (150-450) k/uL MPV Neutrophils % % Lymphocytes % % Monocytes % % Eosinophils % % Basophils % % Neutrophils # (1.3-7.7) k/uL Lymphocytes # (1.0-4.8) k/uL Monocytes # (0-1.0) k/uL Eosinophils # (0-0.7) k/uL Basophils # (0-0.2) k/uL Macrocytosis Sodium 128 L (137-145) mmol/L Potassium 3.5 (3.5-5.1) mmol/L Chloride 103 (98-107) mmol/L Carbon Dioxide 21 L (22-30) mmol/L Anion Gap 4 mmol/L BUN 25 H (9-20) mg/dL Creatinine 0.78 (0.66-1.25) mg/dL Est GFR (CKD-EPI)AfAm >90 (>60 ml/min/1.73 sqM) Est GFR (CKD-EPI)NonAf 88 (>60 ml/min/1.73 sqM) Glucose 125 H (74-99) mg/dL Estimated Ave Glu mg/dL mg/dL Hemoglobin A1c (<=6.0) % Osmolality 281 (275-295) mOsm/kg Plasma Lactic Acid Fox (0.7-2.0) mmol/L Calcium 7.6 L (8.4-10.2) mg/dL Phosphorus (2.5-4.5) mg/dL Magnesium (1.6-2.3) mg/dL Total Bilirubin 1.3 (0.2-1.3) mg/dL AST 19 (17-59) U/L ALT 16 (4-49) U/L Alkaline Phosphatase 56 (38-126) U/L C-Reactive Protein 16.6 H (<1.0) mg/dL NT-Pro-B Natriuret Pep pg/mL Total Protein 4.7 L (6.3-8.2) g/dL Albumin 2.5 L (3.5-5.0) g/dL Triglycerides (0.00-149.00) mg/dL Cholesterol (0.00-200.00) mg/dL LDL Cholesterol, Calc (0.0-131.0) mg/dL VLDL Cholesterol, Calc (5.00-40.00) mg/dL HDL Cholesterol (40.00-60.00) mg/dL Cholesterol/HDL Ratio Ratio Lipase (23-300) U/L Vitamin B12 (200.0-944.0) pg/mL Folate (4.40-31.00) ng/mL Procalcitonin 0.13 H (0.02-0.09) ng/mL TSH (0.465-4.680) mIU/L Urine Color Urine Appearance (Clear) Urine pH (5.0-8.0) Ur Specific [place] (1.001-1.035) Urine Protein (Negative) Urine Glucose (UA) (Negative) Urine Ketones (Negative) Urine Blood (Negative) Urine Nitrite (Negative) Urine Bilirubin (Negative) Urine Urobilinogen (<2.0) mg/dL Ur Leukocyte Esterase (Negative) Urine RBC (0-5) /hpf Urine WBC (0-5) /hpf Urine Mucus (None) /hpf Urine Osmolality (400-1100) mOsm/kg Ur Random Sodium (40-220) mmol/L Influenza Type A (PCR) (Not Detectd) Influenza Type B (PCR) (Not Detectd) RSV (PCR) (Not Detectd) SARS-CoV-2 (PCR) (Not Detectd) 08/16/23 08/16/23 Range/Units 15:30 15:30 WBC (3.8-10.6) k/uL RBC (4.30-5.90) m/uL Hgb (13.0-17.5) gm/dL Hct (39.0-53.0) % MCV (80.0-100.0) fL MCH (25.0-35.0) pg MCHC (31.0-37.0) g/dL RDW (11.5-15.5) % Plt Count (150-450) k/uL MPV Neutrophils % % Lymphocytes % % Monocytes % % Eosinophils % % Basophils % % Neutrophils # (1.3-7.7) k/uL Lymphocytes # (1.0-4.8) k/uL Monocytes # (0-1.0) k/uL Eosinophils # (0-0.7) k/uL Basophils # (0-0.2) k/uL Macrocytosis Sodium (137-145) mmol/L Potassium (3.5-5.1) mmol/L Chloride (98-107) mmol/L Carbon Dioxide (22-30) mmol/L Anion Gap mmol/L BUN (9-20) mg/dL Creatinine (0.66-1.25) mg/dL Est GFR (CKD-EPI)AfAm (>60 ml/min/1.73 sqM) Est GFR (CKD-EPI)NonAf (>60 ml/min/1.73 sqM) Glucose (74-99) mg/dL Estimated Ave Glu mg/dL mg/dL Hemoglobin A1c (<=6.0) % Osmolality (275-295) mOsm/kg Plasma Lactic Acid [place] (0.7-2.0) mmol/L Calcium (8.4-10.2) mg/dL Phosphorus (2.5-4.5) mg/dL Magnesium (1.6-2.3) mg/dL Total Bilirubin (0.2-1.3) mg/dL AST (17-59) U/L ALT (4-49) U/L Alkaline Phosphatase (38-126) U/L C-Reactive Protein (<1.0) mg/dL NT-Pro-B Natriuret Pep pg/mL Total Protein (6.3-8.2) g/dL Albumin (3.5-5.0) g/dL Triglycerides (0.00-149.00) mg/dL Cholesterol (0.00-200.00) mg/dL LDL Cholesterol, Calc (0.0-131.0) mg/dL VLDL Cholesterol, Calc (5.00-40.00) mg/dL HDL Cholesterol (40.00-60.00) mg/dL Cholesterol/HDL Ratio Ratio Lipase (23-300) U/L Vitamin B12 (200.0-944.0) pg/mL Folate (4.40-31.00) ng/mL Procalcitonin (0.02-0.09) ng/mL TSH (0.465-4.680) mIU/L Urine Color Urine Appearance (Clear) Urine pH (5.0-8.0) Ur Specific [place] (1.001-1.035) Urine Protein (Negative) Urine Glucose (UA) (Negative) Urine Ketones (Negative) Urine Blood (Negative) Urine Nitrite (Negative) Urine Bilirubin (Negative) Urine Urobilinogen (<2.0) mg/dL Ur Leukocyte Esterase (Negative) Urine RBC (0-5) /hpf Urine WBC (0-5) /hpf Urine Mucus (None) /hpf Urine Osmolality 225 L (400-1100) mOsm/kg Ur Random Sodium <20 L (40-220) mmol/L Influenza Type A (PCR) (Not Detectd) Influenza Type B (PCR) (Not Detectd) RSV (PCR) (Not Detectd) SARS-CoV-2 (PCR) (Not Detectd) Critical Care Time Critical Care Time: Yes <Neeraj Wagoner - Last Filed: 08/24/23 23:48> Disposition <Shantel Beavers - Last Filed: 08/14/23 19:22> Is patient prescribed a controlled substance at d/c from ED?: No Time of Disposition: 21:00 <Neeraj Wagoner - Last Filed: 08/24/23 23:48> Clinical Impression: Altered mental status, Fever, Weakness, Delirium due to general medical condition, CVA (cerebral vascular accident), Pneumonia Disposition: ADMITTED IP TO THIS HOSP Condition: Stable
[2023-08-14 20:13] LABS: HCT 46.1 % (39.0-53.0); HGB 15.3 gm/dL (13.0-17.5); MCH 33.8 pg (25.0-35.0); MCHC 33.3 g/dL (31.0-37.0); MCV 101.4 fL (80.0-100.0); Mean Platelet Volume 9.3; Platelet Count 185 k/uL (150-450); RBC 4.55 m/uL (4.30-5.90); WBC 13.6 k/uL (3.8-10.6)
--- NOTE | 2023-08-14 20:22 | CT ---
EXAMINATION TYPE: CT brain wo con CT DLP: 1197.4 mGycm, Automated exposure control for dose reduction was used. DATE OF EXAM: 08/14/2023 8:06 PM COMPARISON: None. CLINICAL INDICATION:Male, 77 years old with history of AMS, AMS, non verbal, unable to bear any weigh t due to AMS. TECHNIQUE: Brain: Axial CT images of the brain were obtained with coronal and sagittal reformats created and rev iewed. Contrast used: None. Oral contrast used: None. FINDINGS: Brain: Extra-axial spaces: No abnormal extra-axial fluid collections. Ventricular system: Within normal limits Cerebral parenchyma: Area of garcia-white matter loss of differentiation best appreciated on sagittal i maging series 204 image 53. No acute intraparenchymal hemorrhage or mass effect. The remainder of th e garcia-white junctions are well differentiated. Cerebellum: Unremarkable. Mass effect: No evidence of midline shift. Intracranial vasculature: Atherosclerotic calcifications of the intracranial vessels. Soft tissues: Normal. Calvarium/osseous structures: No depressed skull fracture. Paranasal sinuses and mastoid air cells: Mild scattered paranasal sinus disease. Left mastoid air manuel ls are opacified. Left middle ear is opacified. Parasitic nasal sinus disease with erosion through th e anterior maxillary wall series 205 image 3. Visualized orbits: Bilateral aphakia IMPRESSION: 1. Age-indeterminate given no priors, but suspected to be Acute/subacute CVA involving the left fron alex lobe. 2. Left mastoid air cell effusion and middle ear effusion correlate for otomastoiditis. Findings communicated to Shantel Beavers on 08/14/2023 8:[address] Teodoro Santos.
[2023-08-14] MEDS ORDERED: NALOXONE 0.4 MG/ML 1 ML VIAL IV PRN (20:29)
--- NOTE | 2023-08-14 20:59 | XR ---
EXAMINATION TYPE: XR chest 2V DATE OF EXAM: 08/14/2023 8:30 PM CLINICAL INDICATION:Male, 77 years old with history of dyspnea COMPARISON: None TECHNIQUE: XR chest 2V Frontal and lateral views of the chest. FINDINGS: Lungs/Pleura: There is flattening of the diaphragm with increased lucency of the lungs. No evidence o f pneumothorax, pleural effusion or focal consolidation. Pulmonary vascularity: Unremarkable. Heart/mediastinum: Cardiomediastinal silhouette is prominent in size. Musculoskeletal: No acute osseous pathology. Midline sternotomy wires are noted. IMPRESSION: 1. No acute cardiopulmonary disease process. 2. COPD changes.
[2023-08-14] MEDS: ACETAMINOPHEN TAB 325 MG TAB PO STA (21:20)
[2023-08-14] MEDS: ACETAMINOPHEN IV (For NPO) 1,000 MG in EMPTY BAG 1 BAG IVPB STA (21:20)
[2023-08-14] MEDS: ASPIRIN 325 MG TAB PO STA (21:45)
[2023-08-14] MEDS: SODIUM CHLORIDE 0.9% 1,000 ML IV STA (21:45)
[2023-08-14] MEDS: SODIUM CHLORIDE 0.9% 1,000 ML IV SCH (21:45)
[2023-08-14] MEDS: IBUPROFEN IV 800 MG in SODIUM CHLORIDE 0.9% 250 ML IV ONE (21:46)
[2023-08-14 21:50] LABS: ALT 24 U/L (4-49); AST 22 U/L (17-59); African American GFR (CKD) >90 (>60 ml/min/1.73 sqM); Albumin 4.2 g/dL (3.5-5.0); Alkaline Phosphatase 72 U/L (38-126); Anion Gap 8 mmol/L; Blood Urea Nitrogen 24 mg/dL (9-20); Calcium 8.9 mg/dL (8.4-10.2); Carbon Dioxide 25 mmol/L (22-30); Chloride 97 mmol/L (98-107); Glucose 161 mg/dL (74-99); Magnesium 2.1 mg/dL (1.6-2.3); Non-African American GFR(CKD) 83 (>60 ml/min/1.73 sqM); Phosphorus 3.3 mg/dL (2.5-4.5); Potassium 4.2 mmol/L (3.5-5.1); Sodium 130 mmol/L (137-145); Total Bilirubin 2.2 mg/dL (0.2-1.3); Total Protein 6.7 g/dL (6.3-8.2)
[2023-08-14 21:59] LABS: NT-Pro-B-Type Natriuretic Pept 631 pg/mL
[2023-08-14] MEDS ORDERED: VANCOMYCIN IV PER PHARMACY 1 EACH MISC MISCELLANE PRN (22:31)
[2023-08-14] MEDS: PIPERACILLIN-TAZOBACTAM 3.375 GM in SODIUM CHLORIDE 0.9% 100 ML IVPB SCH (23:57)
[2023-08-14] MEDS: VANCOMYCIN 1,500 MG in SODIUM CHLORIDE 0.9% 500 ML 500 ML IVPB ONE (23:57)
[2023-08-15] MEDS: SODIUM CHLORIDE 0.9% 1,000 ML IV SCH (00:51)
[2023-08-15 01:01] LABS: Appearance,Urine Clear (Clear); Bilirubin,Urine Negative (Negative); Blood,Urine Trace (Negative); Color,Urine Yellow; Glucose,Urine (UA) 1+ (Negative); Ketones,Urine Negative (Negative); Leukocyte Esterase,Urine Negative (Negative); Mucus,Urine Few /hpf; Nitrite,Urine Negative (Negative); Protein,Urine Trace (Negative); RBC,Urine 3 /hpf (0-5); Specific Gravity,Urine 1.024 (1.001-1.035); Urobilinogen,Urine <2.0 mg/dL (<2.0); WBC,Urine 1 /hpf (0-5)
--- NOTE | 2023-08-15 04:36 | P.HPIM ---
History of Present Illness H&P Date: 08/14/23 Chief Complaint: Confusion and unusual behavior 77-year-old male with CAD status post CABG Patient was brought in by his for concerns regarding confusion and abnormal behavior. Patient seems to be confused and provides limited history which was obtained by reviewing medical record and discussing the case with ED doctor Patient reports 1 to 2-day history of periumbilical abdominal pain he rates it as 10 out of 10 in severity no associated nausea vomiting diarrhea he reports some constipation for which she decided to go to an urgent care for evaluation he was found to have a fever of 103 he was found to be confused and disoriented for which recommendations were made that he goes to the hospital for evaluation. Patient also reports some left-sided ear pain denies any draining tinnitus. He does report sinus headache since he was diagnosed with upper respiratory infection about a week ago last Tuesday and was given some antibiotic with amoxicillin and steroids. Otherwise patient fails to provide any other meaningful history at this time CT of the brain was done in the ED showed acute/subacute left frontal ischemia with possible left otomastoiditis Patient denies tobacco smoking illicit drugs or heavy alcohol review of systems Unreliable historian on exam Constitutional: Patient seems to be relaxed however confused disoriented, however able to follow commands with encouragement Eyes: Anicteric sclerae, moist conjunctiva, Pupils equal round reactive to light ENMT: NC/AT Oropharynx clear, no erythema, or exudates Neck: Supple, no masses, or JVD No carotid bruits No thyromegaly Lungs: Clear to auscultation Clear to percussion Normal respiratory effort, no accessory muscle use Cardiovascular: Heart regular in rate and rhythm, No murmurs, gallops, or rubs No peripheral edema Abdominal: Soft Nontender, no guarding, rebound or rigidity Abdomen moving with respiration Normoactive bowel sounds Extremities: No digital cyanosis No clubbing Pedal pulses intact and symmetrical Radial pulses intact and symmetrical No calf tenderness Psychiatric: Alert and oriented to person, place Neuro Muscles Strength 5/5 in all 4 extremities Sensation to light touch grossly present throughout Cranial nerves II-XII grossly intact Past Medical History Past Medical History: Cancer Additional Past Medical History / Comment(s): BLADDER CANCER History of Any Multi-Drug Resistant Organisms: None Reported Past Surgical History: Appendectomy, Back Surgery, Bladder Surgery, Tonsillectomy Additional Past Surgical History / Comment(s): oral surgery Past Anesthesia/Blood Transfusion Reactions: No Reported Reaction Past Psychological History: No Psychological Hx Reported Past Alcohol Use History: Occasional Past Drug Use History: None Reported - Past Family History Father Family Medical History: Cancer Additional Family Medical History / Comment(s): BLADDER CANCER Medications and Allergies Home Medications Medication Instructions Recorded Confirmed Type Aspirin [Adult Low Dose Aspirin EC] 81 mg PO DAILY 08/04/22 08/14/23 History Atorvastatin [Lipitor] 10 mg PO HS 08/04/22 08/14/23 History Metoprolol Tartrate 12.5 mg PO BID 08/04/22 08/14/23 History Tamsulosin [Flomax] 0.4 mg PO DIRECTED 08/04/22 08/14/23 History Amoxicillin 500 mg PO BID 08/14/23 08/14/23 History Betamethasone Dipropionate 1 applic TOPICAL DIRECTED PRN 08/14/23 08/14/23 History [Diprolene 0.05% Cream (GEQ)] Cholecalciferol [Vitamin D3 (25 25 mcg PO BID 08/14/23 08/14/23 History Mcg = 1000 Iu)] Allergies Allergy/AdvReac Type Severity Reaction Status Date / Time No Known Allergies Allergy Verified 08/14/23 22:15 Physical Exam Vitals: Vital Signs Temp Pulse Resp BP Pulse Ox 08/14/23 23:16 100.0 F H 08/14/23 21:48 67 18 124/63 94 L 08/14/23 19:08 103.0 F H 77 20 143/70 96 Intake and Output 08/14/23 08/14/23 08/15/23 14:59 22:59 06:59 Other: Weight 86.183 kg Results CBC & Chem 7: 08/14/23 19:35 08/14/23 20:30 Labs: Abnormal Lab Results - Last 24 Hours (Table) 08/14/23 08/14/23 Range/Units 19:35 20:30 WBC 13.6 H (3.8-10.6) k/uL MCV 101.4 H (80.0-100.0) fL Sodium 130 L (137-145) mmol/L Chloride 97 L (98-107) mmol/L BUN 24 H (9-20) mg/dL Glucose 161 H (74-99) mg/dL Total Bilirubin 2.2 H (0.2-1.3) mg/dL Assessment and Plan Assessment: 77-year-old male with coronary artery disease status post CABG coming into the hospital upon recommendations of urgent care that he went there who diagnosed him a week ago with upper respiratory infection symptoms treated with amoxicillin and steroids then he goes back today for evaluation of abdominal pain for which urgent care recommends he goes to the ER for evaluation due to fevers upon arrival patient reported that the patient seems to be confused and disoriented I discussed the case with ED doctor and accepted the admission for acute/subacute left frontal stroke for neurology evaluation and left otomas toiditis With anticipated length of stay more than 2 midnights Acute encephalopathy secondary to underlying suspected acute/subacute left frontal CVA Fall precautions Neurology evaluation Neurochecks Check carotid ultrasound Check echocardiogram Check lipid profile Continue with aspirin and statin PT evaluation CT scan of the brain showed acute/subacute left frontal CVA and left Left otomastoiditis Fever 103 Follow-up cultures Empirically treated with vancomycin dosing by pharmacy and Zosyn 3.375 g IV piggyback every 8 hours Tylenol for fever Acute respiratory viral panel negative for COVID RSV and influenza Liver enzymes within normal limits Chest x-ray no acute cardiopulmonary process Lactic acid 1.4 White count 13.6 Mild hyponatremia with sodium 130 Continue with normal saline 130 cc/h status post 1 L bolus Renal function unremarkable potassium 4.2 BUN 24 creatinine 0.8 Chronic conditions CAD status post CABG continue with aspirin statin and metoprolol Full code DVT prophylaxis heparin 5000 units subcu 3 times daily
[2023-08-15] MEDS: HEPARIN SODIUM,PORCINE 5,000 UNIT/ML 1 ML VIAL SQ SCH (08:56)
[2023-08-15] MEDS: ASPIRIN 325 MG TAB PO SCH (08:56)
[2023-08-15] MEDS: TAMSULOSIN 0.4 MG CAP.ER.24H PO SCH (08:57)
[2023-08-15] MEDS: METOPROLOL TARTRATE 25 MG TAB PO SCH (08:57)
[2023-08-15] MEDS: PANTOPRAZOLE 40 MG/10 ML VIAL IVP SCH (09:36)
[2023-08-15] MEDS: ONDANSETRON 4 MG/2 ML VIAL IVP PRN (09:36)
--- NOTE | 2023-08-15 10:54 | P.CNNES ---
History of Present Illness Consult date: 08/15/23 Requesting physician: Neeraj Wagoner Reason for Consult: CVA History of Present Illness: This is a 77-year-old right-handed male with history of hypertension, recent pneumonia, came to the hospital by ambulance yesterday at 6:32 PM for altered mental status. Patient and his provided with a history. They returned from a cruise on 08/05/2023. While he was on the cruise, he started feeling sick and was diagnosed later with pneumonia. He was started on amoxicillin and Medrol Dosepak. The Medrol Dosepak has been completed, but he is still on the course of antibiotic with amoxicillin. On Tuesday, 2 days ago, he stayed mostly in the bed, which is unusual. Yesterday he started complaining of abdominal pain, and his noticed that he was disoriented, did not know what was going on. Last night he would look at his and could not say anything. He could not talk most of last night. She got concerned, therefore brought him to the urgent care and while he was sitting there, he got further worse therefore he was brought to the hospital. This morning he is better. No report of focal numbness, tingling, focal weakness, double vision, loss of vision facial droop or focal weakness. Patient has been having vomiting with a lot of white phlegm, although better but not gone yet. EMS flowsheet not available in the chart. Vital signs with blood pressure 143/70, pulse 77 temperature 103.0. Most recent temperature is 99.3. Blood test shows WBC 13.6 hemoglobin 15.3 with elevated MCV 101.4. Sodium 130 potassium 4.2, normal renal functions. Normal hepatic panel. TSH is normal UA is negative. Influenza, RSV and coronavirus PCR negative. CT head revealed age indeterminate given no priors, but suspected to be acute/subacute CVA involving the left frontal lobe. Left mastoid air cell effusion and middle ear effusion correlate for otomastoiditis. I personally reviewed CT head, and the left frontal lobe encephalomalacia appears more chronic than subacute. Otherwise I agree with the report. Chest x-ray revealed no acute cardiopulmonary disease. COPD changes. Home medications include Lipitor 10 mg, aspirin 81 mg, Flomax, metoprolol, amoxicillin 500 mg twice daily, vitamin D. Patient is compliant with the medication. Patient denies any history of strokes or TIA, although after he had undergone triple bypass surgery wanted to have years ago, he had an episode of feeling disoriented a couple times but no other stroke symptoms. No history of diabet es. No history of tobacco use. He drinks alcohol very very occasionally. Review of Systems Constitutional: Reports chills, Reports fever, Reports weight gain Eyes: denies blurred vision, denies diplopia, denies pain Ears: bilateral: decreased hearing, tinnitus, deny: ear discharge, earache Ears, nose, mouth and throat: Reports sore throat (went away), Denies headache (Gettting better), Denies vertigo Cardiovascular: Denies chest pain, Denies shortness of breath Respiratory: Reports cough, Reports excessive sputum Gastrointestinal: Reports abdominal pain, Reports nausea, Reports vomiting, Denies diarrhea Genitourinary: Denies dysuria, Denies incontinence Musculoskeletal: Denies low back pain, Denies neck pain Integumentary: Denies pruritus, Denies rash Neurological: Reports as per HPI Psychiatric: Denies anxiety, Denies depression Endocrine: Reports fatigue, Reports weight change Past Medical History Past Medical History: Cancer Additional Past Medical History / Comment(s): BLADDER CANCER History of Any Multi-Drug Resistant Organisms: None Reported Past Surgical History: Appendectomy, Back Surgery, Bladder Surgery, Tonsillecto my Additional Past Surgical History / Comment(s): oral surgery Past Anesthesia/Blood Transfusion Reactions: No Reported Reaction Past Psychological History: No Psychological Hx Reported Past Alcohol Use History: Occasional Past Drug Use History: None Reported - Past Family History Father Family Medical History: Cancer Additional Family Medical History / Comment(s): BLADDER CANCER Medications and Allergies Home Medications Medication Instructions Recorded Confirmed Type Aspirin [Adult Low Dose Aspirin EC] 81 mg PO DAILY 08/04/22 08/14/23 History Atorvastatin [Lipitor] 10 mg PO HS 08/04/22 08/14/23 History Metoprolol Tartrate 12.5 mg PO BID 08/04/22 08/14/23 History Tamsulosin [Flomax] 0.4 mg PO DAILY 08/04/22 08/15/23 History Amoxicillin 500 mg PO BID 08/14/23 08/14/23 History Betamethasone Dipropionate 1 applic TOPICAL DIRECTED PRN 08/14/23 08/14/23 History [Diprolene 0.05% Cream (GEQ)] Cholecalciferol [Vitamin D3 (25 25 mcg PO BID 08/14/23 08/14/23 History Mcg = 1000 Iu)] Allergies Allergy/AdvReac Type Severity Reaction Status Date / Time No Known Allergies Allergy Verified 08/14/23 22:15 Physical Examination - Vital Signs Vital Signs: Vital Signs Temp Pulse Pulse Resp BP BP Pulse Ox 08/15/23 08:35 99.3 F 65 20 142/78 96 08/15/23 04:00 62 18 129/73 96 08/14/23 23:58 58 L 16 110/64 96 08/14/23 23:16 100.0 F H 08/14/23 21:48 67 18 124/63 94 L 08/14/23 21:20 20 08/14/23 19:08 103.0 F H 77 20 143/70 96 Intake and Output 08/14/23 08/15/23 08/15/23 22:59 06:59 14:59 Other: Weight 86.183 kg Patient is an elderly male, very pleasant, in no distress, but appears somewhat mildly encephalopathic. Patient keeps his eyes closed, but then gets alert awake oriented to time place and person. He knows it is August 2023 and that he is in [facility] in [place]. He knows name of the current president. Speech and language functions are normal. Patient can name and repeat very well. No aphasia or dysarthria. Attention, concentration and fund of knowledge is adequate. On cranial nerve examination, pupils are equal, round and reacting to light, visual sharif are full on confrontation, with no neglect on double simultaneous stimulation. Extraocular muscles are intact with no nystagmus. Face is symmetric, tongue protrudes to the midline. Palatal elevation and sensation normal, hearing is moderately decreased for finger rubbing and shoulder shrug normal, facial sensation normal. On muscle strength testing, there is no pronator drift and the strength is normal in arms and legs distally and proximally. Deep tendon reflexes are symmetric 1 at the biceps, 1 brachioradialis, 1 at the knees trace ankles and plantars downgoing bilaterally. Sensory to touch is equal with no neglect on double simultaneous stimulation. Cerebellar function showed no ataxia for [id number] testing. No dysdiadochokinesia. No ataxia for [id number] testing on either side. Tone and bulk of muscles normal. Gait deferred.. On general examination, there is no carotid bruit or murmur, S1-S2 audible. Chest is clear on consultation. Abdomen is soft nontender. No organomegaly, bowel sounds present. Peripheral pulses are present. No peripheral edema. Results - Laboratory Findings CBC and BMP: 08/14/23 19:35 08/14/23 20:30 Abnormal Lab Findings: Abnormal Labs 08/14/23 08/14/23 08/15/23 19:35 20:30 00:49 WBC 13.6 H MCV 101.4 H Sodium 130 L Chloride 97 L BUN 24 H Glucose 161 H Total Bilirubin 2.2 H Urine Protein Trace H Urine Glucose (UA) 1+ H Urine Blood Trace H Urine Mucus Few H Assessment and Plan Assessment: * Altered mental status, likely due to metabolic encephalopathy. Patient has been having high fever, abdominal pain with recent travel to a cruise ship to [facility]. Patient yesterday was having difficulty speaking, which I felt is likely from high fever and encephalopathy, less likely cerebral ischemia. Patient's current NIH stroke scale is 0. * Abnormal CT head, with evidence of small area encephalomalacia left frontal region, which appears old. Rule out stroke/TIA * Fever, abdominal, with recent travel to a cruise to [facility]. * Recent history of pneumonia, being treated with amoxicillin. * History of triple bypass surgery. * Hypertension Plan: * Patient's lesion on the CT head appears more chronic in nature, but with recent history of difficulty speaking, we will check MRI of the brain to rule out subacute CVA. * MRI brain, rule out CVA * 2D echo * Carotid Doppler * Hemoglobin A1c * Fasting lipid panel * B12, folate. TSH is normal. * Continue aspirin 81 mg and Lipitor 10 mg daily. * Medical management as per IM. May consider infectious disease consultation. * Neurology will follow. Thank you for the consult.
[2023-08-15] MEDS ORDERED: IOPAMIDOL CONTRAST (ORAL USE) VIAL PO PRN ×2 (11:02→11:04)
[2023-08-15] MEDS: VANCOMYCIN 1,250 MG in SODIUM CHLORIDE 0.9% 250 ML IVPB SCH (12:04)
[2023-08-15] MEDS: PIPERACILLIN-TAZOBACTAM 3.375 GM in SODIUM CHLORIDE 0.9% 100 ML IVPB SCH (12:04)
--- NOTE | 2023-08-15 13:25 | US ---
EXAMINATION TYPE: US carotid duplex BILAT DATE OF EXAM: 08/15/2023 COMPARISON: NONE CLINICAL INDICATION: Male, 77 years old with history of stroke; Patient denies any signs or symptoms TECHNIQUE: Carotid duplex ultrasound examination. Indirect Doppler criteria was utilized. FINDINGS: EXAM MEASUREMENTS: RIGHT: Peak Systolic Velocity (PSV) cm/sec ----- Right CCA: 75 ----- Right ICA: 75 ----- Right ECA: 100 ICA/CCA ratio: 1.0 RIGHT: End Diastole cm/sec ----- Right CCA: 13 ----- Right ICA: 24 ----- Right ECA: 09 LEFT: Peak Systolic Velocity (PSV) cm/sec ----- Left CCA: 76 ----- Left ICA: 84 ----- Left ECA: 103 ICA/CCA ratio: 1.1 LEFT: End Diastole cm/sec ----- Left CCA: 14 ----- Left ICA: 17 ----- Left ECA: 6 VERTEBRALS (direction of flow): Right Vertebral: Antegrade Left Vertebral: Antegrade Rhythm: Arrhythmia Mild plaque noted within bilateral CCA, bulbs, more mild to moderate on the left. No elevated velocit ies noted within IMPRESSION: 1. No hemodynamically significant internal carotid artery stenosis on either side. 2. Note that the publication designer indicates an aberrant cardiac rhythm during the scan. Clinically correla te. Criteria for Assigning % of Stenosis / Diameter reduction (Estimation based on the indirect measurements of the internal carotid artery velocities (ICA PSV). 1. Normal (no stenosis)=ICA PSV < 125 cm/s: ratio < 2.0: ICA EDV<40 cm/s. 2. Less than 50% stenosis=ICA PSV < 125 cm/s: ratio < 2.0: ICA EDV<40 cm/s. 3. 50 to 69% stenosis=ICA PSV of 125 to 230 cm/s: ration 2.0 ? 4.0: ICA EDV 40-100 cm/s. 4. Greater than 70% stenosis to near occlusion= ICA PSV > 230 cm/s: ratio > 4.0: ICA EDV > 100 cm/s. 5. Near occlusion= ICA PSV velocities may be low or undetectable: variable ratio and ICA EDV. 6. Total occlusion=unable to detect flow.
--- NOTE | 2023-08-15 13:42 | CT ---
EXAMINATION: CT ABDOMEN AND PELVIS WITH IV CONTRAST DATE OF EXAMINATION: 08/15/2023. COMPARISON: None available. INDICATION: Sepsis with abdominal pain. PROCEDURE: Axial CT of the abdomen and pelvis was performed with contrast and sagittal and coronal reformatted images were performed. CT dose lowering techniques were used, to include: automated expos ure control, adjustment for patient size, and/or use of iterative reconstruction. FINDINGS: LOWER CHEST : The visualized lung bases are clear. There are no pleural or pericardial effusions. M oderate global cardiomegaly. ABDOMEN: Liver and Biliary system: Small amount of pneumobilia. No suspicious liver lesions are seen. Adrenal glands: Normal. Kidneys and ureters: Multiple bilateral renal cysts and parapelvic cysts are seen which are very page lar to the previous evaluation. There is a 4.3 mm nonobstructing stone in the interpolar region of th e left kidney. Likely a few additional punctate stones within the left kidney. No suspicious renal le sions are clearly identified Spleen: The spleen is enlarged measuring 14.9 cm in AP dimension. Pancreas: Normal. Gallbladder: Absent. Lymph nodes, Peritoneum and mesentery: There is no mesenteric or retroperitoneal lymphadenopathy. Gastrointestinal tract: There are no dilated loops of bowel or free intraperitoneal air. Prior irizarry rgical changes within the stomach are unchanged. There is mild descending colonic and sigmoid colonic diverticulosis without evidence of diverticulitis. Aorta/IVC: There is moderate vascular calcification throughout the abdominal aorta without evidence of aneurysmal dilation or dissection. IVC normal. Abdominal wall: Normal. PELVIS: Fluid: There is no free fluid in the pelvis. Lymph Nodes: There is no pelvic or inguinal lymphadenopathy.. Urinary bladder: There is mild prostamegaly indenting the base of the bladder.. BONES: There are no osseous destructive lesions.. ADDITIONAL SIGNIFICANT FINDINGS: None. IMPRESSION: 1. Nonobstructing left renal stone. 2. Multiple parapelvic and renal cysts bilaterally. 3. Diverticulosis without evidence of diverticulitis. 4. Prostamegaly. 5. No definitive acute findings.
--- NOTE | 2023-08-15 13:46 | P.PN ---
Subjective Progress Note Date: 08/15/23 Hospital Course: 77-year-old male with history of CAD status post CABG, dyslipidemia, BPH presenting with 2 days of altered mentation, upper respiratory symptoms as well as abdominal pain. Initial presentation, patient was febrile, requiring 2 L of oxygen via nasal cannula. Rest of the vitals within normal limits. Chest x-ray did not show any acute process. Brain CT shows suspected acute/subacute CVA involving the left frontal lobe, left mastoid air cell effusion and middle ear effusion concerning for otomastoiditis. Patient started on IV antibiotics. ID and neurology consulted. Subjective: Patient seen and examined at bedside. No acute events overnight. He has been having increased abdominal pain mostly epigastric, also has significant nausea and vomiting. Pertinent positives and negatives as discussed above, a complete review of systems was performed and all other systems are negative. Vitals Signs Reviewed. General: Nontoxic, no distress, appears at stated age, tired appearing Derm: Warm, dry Head: Atraumatic, normocephalic, symmetric Eyes: EOMI, no lid lag, anicteric sclera Mouth: No lip lesion, mucus membranes moist Cardiovascular: S1S2 reg, no murmur Lungs: CTA bilateral, no rhonchi, no rales, no accessory muscle use Abdominal: Soft, nontender to palpation, no guarding, no appreciable organomegaly Ext: No gross muscle atrophy, no edema, no contractures Neuro: CN II-XI grossly intact, no focal neuro deficits Psych: Alert, oriented, appropriate affect Data Reviewed Today: Pertinent Labs: Repeat CBC and CMP pending, will be reviewed when available Imaging: Urinalysis negative Assessment and Plan: Active: Acute encephalopathy, resolving Acute/subacute left frontal CVA Neurology note reviewed, MRI brain pending, carotid Dopplers pending Echocardiogram pending Continue aspirin 81 mg, atorvastatin 10 mg Sepsis, likely source otomastoiditis Blood cultures pending Discussed management with ID, continue IV vancomycin, monitor renal toxicity, as well as IV Zosyn 3.375 g every 8 hours Also complaining of abdominal pain, CT abdomen pelvis pending Nausea and vomiting Zofran 4 mg IV every 8 hours as needed Chronic: CAD status post CABG Dyslipidemia BPH DVT ppx: Subcu heparin Code status: Full code Anticipated discharge place: Pending clinical course Anticipated discharge time: Pending clinical course Objective - Vital Signs Vital signs: Vital Signs Temp 99.3 F 08/15/23 08:35 Pulse 65 08/15/23 08:35 Resp 20 08/15/23 08:35 BP 142/78 08/15/23 08:35 Pulse Ox 96 08/15/23 11:35 FiO2 Intake & Output 08/14/23 08/15/23 08/15/23 18:59 06:59 18:59 Weight 86.183 kg Other: # Voids 1 - Labs CBC & Chem 7: 08/14/23 19:35 08/14/23 20:30 Labs: Abnormal Lab Results - Last 24 Hours (Table) 08/14/23 08/14/23 08/15/23 Range/Units 19:35 20:30 00:49 WBC 13.6 H (3.8-10.6) k/uL MCV 101.4 H (80.0-100.0) fL Sodium 130 L (137-145) mmol/L Chloride 97 L (98-107) mmol/L BUN 24 H (9-20) mg/dL Glucose 161 H (74-99) mg/dL Total Bilirubin 2.2 H (0.2-1.3) mg/dL Urine Protein Trace H (Negative) Urine Glucose (UA) 1+ H (Negative) Urine Blood Trace H (Negative) Urine Mucus Few H (None) /hpf
[2023-08-15 14:52] LABS: Basophils % (A) 0 %; Eosinophils % (A) 0 %; HCT 41.7 % (39.0-53.0); HGB 13.7 gm/dL (13.0-17.5); Lymphocytes # (A) 0.4 k/uL (1.0-4.8); Lymphocytes % (A) 3 %; MCH 33.6 pg (25.0-35.0); MCHC 32.8 g/dL (31.0-37.0); MCV 102.3 fL (80.0-100.0); Macrocytosis Slight; Mean Platelet Volume 8.5; Monocytes # (A) 0.3 k/uL (0-1.0); Monocytes % (A) 3 %; Neutrophils # (A) 10.6 k/uL (1.3-7.7); Neutrophils % (A) 93 %; Platelet Count 149 k/uL (150-450); RBC 4.08 m/uL (4.30-5.90); RDW 12.9 % (11.5-15.5); WBC 11.4 k/uL (3.8-10.6)
[2023-08-15 15:37] LABS: ALT 18 U/L (4-49); AST 19 U/L (17-59); African American GFR (CKD) >90 (>60 ml/min/1.73 sqM); Albumin 2.8 g/dL (3.5-5.0); Alkaline Phosphatase 62 U/L (38-126); Anion Gap 7 mmol/L; Blood Urea Nitrogen 25 mg/dL (9-20); Calcium 7.8 mg/dL (8.4-10.2); Carbon Dioxide 22 mmol/L (22-30); Chloride 101 mmol/L (98-107); Glucose 132 mg/dL (74-99); Lipase 20 U/L (23-300); Magnesium 2.1 mg/dL (1.6-2.3); Non-African American GFR(CKD) 87 (>60 ml/min/1.73 sqM); Phosphorus 2.4 mg/dL (2.5-4.5); Sodium 130 mmol/L (137-145); Total Bilirubin 1.2 mg/dL (0.2-1.3); Total Protein 5.3 g/dL (6.3-8.2)
--- NOTE | 2023-08-15 18:54 | CA ---
Transthoracic Echo Report Name: Henok Fields Age: 77 Gender: M : 1945 Exam Date: 08/15/2023 10:41 Exam Location: [facility] Ht (in): 71 Wt (lb): 190 Ordering Physician: Rukhsana Obrien MD Attending/Referring Phys: [id number], Micah Pheresis Nurse Fritz Miles RDCS Procedure CPT: Indications: stroke Cardiac Hx: Technical Quality: Contrast 1: Total Dose (mL): Contrast 2: Total Dose (mL): MEASUREMENTS (Male / Female) Normal Values 2D ECHO LV Diastolic Diameter PLAX 5.9 cm 4.2 - 5.9 / 3.9 - 5.3 cm LV Systolic Diameter PLAX 3.8 cm IVS Diastolic Thickness 0.9 cm 0.6 - 1.0 / 0.6 - 0.9 cm LVPW Diastolic Thickness 0.9 cm 0.6 - 1.0 / 0.6 - 0.9 cm LV Relative Wall Thickness 0.3 LVOT Diameter 2.6 cm Aortic Root Diameter 4.0 cm LA Systolic Diameter LX 5.7 cm 3.0 - 4.0 / 2.7 - 3.8 cm DOPPLER AV Peak Velocity 121.1 cm/s AV Peak Gradient 5.9 mmHg AV Mean Velocity 85.8 cm/s AV Mean Gradient 3.2 mmHg AV Velocity Time Integral 22.6 cm LVOT Peak Velocity 111.7 cm/s LVOT Peak Gradient 5.0 mmHg LVOT Velocity Time Integral 22.3 cm LVOT Stroke Volume 116.1 cm??? LVOT Stroke Volume Index 56.3 ml/m??? LVOT Cardiac Index 3388.9 cm???/min???m??? AV Area Cont Eq vti 5.1 cm??? AV Area Cont Eq pk 4.8 cm??? Mitral E Point Velocity 66.8 cm/s Mitral A Point Velocity 88.6 cm/s Mitral E to A Ratio 0.8 MV Deceleration Time 244.9 ms TR Peak Velocity 210.4 cm/s TR Peak Gradient 17.7 mmHg PV Peak Velocity 95.9 cm/s PV Peak Gradient 3.7 mmHg FINDINGS Left Ventricle Left ventricular ejection fraction is estimated at 55-60 %. No obvious regional wall motion abnormalities. Borderline left ventricular hypertrophy. Right Ventricle Right ventricular dilatation? Right Atrium Normal right atrial size. Left Atrium Severely increased left atrial diameter. Mitral Valve Trace mitral regurgitation. Aortic Valve Trileaflet aortic valve. Mild aortic regurgitation. Tricuspid Valve Mild tricuspid regurgitation. Pulmonic Valve Mild pulmonic regurgitation. Pericardium No pericardial effusion. Aorta Normal size aortic root and proximal ascending aorta. CONCLUSIONS Normal LV systolic function Mild aortic regurgitation Previewed by: Dr. Cole Beckett MD (Electronically Signed) Final Date: 15 August 2023 18:53
[2023-08-15] MEDS: ATORVASTATIN 10 MG TAB PO SCH (19:54)
--- NOTE | 2023-08-15 21:54 | P.CONS ---
History of Present Illness - Reason for Consult Consult date: 08/15/23 Fever Requesting physician: Neeraj Wagoner - Chief Complaint Mental status changes x 1 day - History of Present Illness Patient is a 77-year-old male with a past medical his significant for bladder cancer patient was brought into the hospital for evaluation of mental status changes apparently the patient has been diagnosed with a pneumonia about a week ago at the urgent care and has been treated with a course of steroids and amoxicillin patient subsequently did not have significant improvement in his symptoms and the patient was taken back to the urgent care with the patient was noted to be significantly weak and some mental status changes for the patient was sent to the ER on arrival to the ER patient did have a fever of 103 F patient was not tachycardic or hypotensive he was mildly hypoxic and currently on 2 L nasal cannula oxygen patient did have a white count of 13.6 creatinine has been normal liver isms are normal urine has been negative influenza RSV and COVID testing was negative patient did have a chest x-ray no acute cardiopulmonary disease process COPD changes patient has been started on vancomycin and Evangelina infectious disease was consulted for further management of antibiotic therapy patient at this time denies significant headache or photophobia, patient knows that he is in the hospital. Denies having any chest pain shortness with he did have a cough moderate intensity but no significant sputum production patient did have some nausea decreased oral intake denies any abdominal pain no diarrhea or constipation and no urinary symptoms currently do not have an open wound Review of Systems Positive point and negatives has been mentioned in the HPI, complete review of systems was performed and all other systems are negative Past Medical History Past Medical History: Cancer Additional Past Medical History / Comment(s): BLADDER CANCER History of Any Multi-Drug Resistant Organisms: None Reported Past Surgical History: Appendectomy, Back Surgery, Bladder Surgery, Tonsillect margie Additional Past Surgical History / Comment(s): oral surgery Past Anesthesia/Blood Transfusion Reactions: No Reported Reaction Past Psychological History: No Psychological Hx Reported Past Alcohol Use History: Occasional Past Drug Use History: None Reported - Past Family History Father Family Medical History: Cancer Additional Family Medical History / Comment(s): BLADDER CANCER Medications and Allergies Home Medications Medication Instructions Recorded Confirmed Type Aspirin [Adult Low Dose Aspirin EC] 81 mg PO DAILY 08/04/22 08/14/23 History Tamsulosin [Flomax] 0.4 mg PO DAILY 08/04/22 08/15/23 History Betamethasone Dipropionate 1 applic TOPICAL DIRECTED PRN 08/14/23 08/14/23 History [Diprolene 0.05% Cream (GEQ)] Cholecalciferol [Vitamin D3 (25 25 mcg PO BID 08/14/23 08/14/23 History Mcg = 1000 Iu)] Amoxic-Pot Clav 875-125Mg 1 tab PO BID 10 Days #20 tab 08/18/23 Rx [Augmentin 875-125] Atorvastatin [Lipitor] 40 mg PO DAILY #30 tablet 08/18/23 Rx Clopidogrel [Plavix] 75 mg PO DAILY #30 tab 08/18/23 Rx Allergies Allergy/AdvReac Type Severity Reaction Status Date / Time No Known Allergies Allergy Verified 08/14/23 22:15 Physical Exam Vitals: Vital Signs Temp Pulse Pulse Resp BP BP Pulse Ox 08/15/23 08:35 99.3 F 65 20 142/78 96 08/15/23 04:00 62 18 129/73 96 08/14/23 23:58 58 L 16 110/64 96 08/14/23 23:16 100.0 F H 08/14/23 21:48 67 18 124/63 94 L 08/14/23 21:20 20 08/14/23 19:08 103.0 F H 77 20 143/70 96 Intake and Output 08/14/23 08/15/23 08/15/23 22:59 06:59 14:59 Other: Weight 86.183 kg GENERAL DESCRIPTION: Elderly male lying in bed, no distress. No tachypnea or accessory muscle of respiration use. HEENT: Shows Pallor , no scleral icterus. Oral mucous membrane is dry. No pha ryngeal erythema or thrush NECK: Trachea central, no thyromegaly. LUNGS: Unlabored breathing. Decreased breath sound at the base HEART: S1, S2, regular rate and rhythm. No loud murmur ABDOMEN: Soft, no tenderness , guarding or rigidity, no organomegaly EXTREMITIES: No edema of feet. SKIN: No rash, no masses palpable. NEUROLOGICAL: The patient is awake, aler mood and affect normal. Results CBC & Chem 7: 08/18/23 07:48 08/18/23 07:48 Labs: Abnormal Lab Results - Last 24 Hours (Table) 0308/14/23 08/15/23 Range/Units 19:35 20:30 00:49 WBC 13.6 H (3.8-10.6) k/uL MCV 101.4 H (80.0-100.0) fL Sodium 130 L (137-145) mmol/L Chloride 97 L (98-107) mmol/L BUN 24 H (9-20) mg/dL Glucose 161 H (74-99) mg/dL Total Bilirubin 2.2 H (0.2-1.3) mg/dL Urine Protein Trace H (Negative) Urine Glucose (UA) 1+ H (Negative) Urine Blood Trace H (Negative) Urine Mucus Few H (None) /hpf Assessment and Plan (1) Fever Status: Acute Code(s): R50.9 - FEVER, UNSPECIFIED SNOMED Code(s): 992616172 (2) Pneumonia Status: Acute Code(s): J18.9 - PNEUMONIA, UNSPECIFIED ORGANISM SNOMED Code(s): 786123289 Plan: 1patient was hospitalized weakness noticed to have a fever did have some respiratory symptoms apparently diagnosed with the pneumonia as an outpatient failing outpatient oral amoxicillin therapy patient did have mild hypoxemia no abdominal tenderness was noticed and no evidence of any cellulitis no joint swelling 2-we will try to obtain a sputum for Gram stain culture check a CRP and a procalcitonin 3-continue with the Zosyn however discontinue vancomycin to decrease risk of nephrotoxicity at the bedside questions answered We will follow on clinical condition and cultures to further adjust medication if needed Thank you for this consultation we will follow the patient along with you Dictation was produced using [employer] dictation software. please excuse any grammatical, word or spelling errors. Time with Patient: Greater than 30
[2023-08-16 02:31] LABS: Chol/HDL Ratio 1.78 Ratio; LDL Cholesterol,Calculated 23.1 mg/dL (0.0-131.0)
[2023-08-16] MEDS: ACETAMINOPHEN TAB 325 MG TAB PO PRN (04:32)
[2023-08-16 07:29] LABS: Basophils % (A) 0 %; Eosinophils % (A) 0 %; HCT 36.5 % (39.0-53.0); HGB 12.3 gm/dL (13.0-17.5); Lymphocytes # (A) 0.8 k/uL (1.0-4.8); Lymphocytes % (A) 7 %; MCH 34.1 pg (25.0-35.0); MCHC 33.8 g/dL (31.0-37.0); MCV 100.9 fL (80.0-100.0); Mean Platelet Volume 8.6; Monocytes # (A) 0.7 k/uL (0-1.0); Monocytes % (A) 6 %; Neutrophils # (A) 8.7 k/uL (1.3-7.7); Neutrophils % (A) 84 %; Platelet Count 146 k/uL (150-450); RBC 3.62 m/uL (4.30-5.90); RDW 12.8 % (11.5-15.5); WBC 10.4 k/uL (3.8-10.6)
[2023-08-16 08:04] LABS: ALT 16 U/L (4-49); AST 19 U/L (17-59); African American GFR (CKD) >90 (>60 ml/min/1.73 sqM); Albumin 2.5 g/dL (3.5-5.0); Alkaline Phosphatase 56 U/L (38-126); Anion Gap 4 mmol/L; Blood Urea Nitrogen 25 mg/dL (9-20); Calcium 7.6 mg/dL (8.4-10.2); Carbon Dioxide 21 mmol/L (22-30); Chloride 103 mmol/L (98-107); Glucose 125 mg/dL (74-99); Non-African American GFR(CKD) 88 (>60 ml/min/1.73 sqM); Potassium 3.5 mmol/L (3.5-5.1); Sodium 128 mmol/L (137-145); Total Bilirubin 1.3 mg/dL (0.2-1.3); Total Protein 4.7 g/dL (6.3-8.2)
[2023-08-16] MEDS: ASPIRIN 81 MG PO SCH (08:11)
[2023-08-16 09:19] LABS: C Reactive Protein 16.6 mg/dL (<1.0)
[2023-08-16] MEDS ORDERED: VANCOMYCIN TROUGH DUE 1 EACH MISC MISCELLANE ONE (11:00)
--- NOTE | 2023-08-16 13:18 | MR ---
EXAMINATION TYPE: MR brain wo con DATE OF EXAM: 08/16/2023 12:50 PM COMPARISON: NONE HISTORY: Difficulty speaking, abnormal CT. FINDINGS: The ventricles, basal cisterns and sulci overlying the cerebral convexities are mildly enlarged. There is evidence of mild periventricular white matter ischemic demyelination. Remote deep white matter insults are also noted. On diffusion weighted imaging there are numerous tiny foci of increased signal involving the left per iatrial region, subcortical and cortical regions of the high frontal and high parietal regions. There is no evidence for midline shift or mass effect. Acute intracranial hemorrhage or extra-axial collection is not evident. The paranasal sinuses and mastoid air cells are well-aerated. IMPRESSION: On diffusion weighted imaging there are numerous tiny foci of increased signal involving the left per iatrial region, subcortical and cortical regions of the high frontal and high parietal regions.
--- NOTE | 2023-08-16 13:42 | P.PN ---
Subjective Progress Note Date: 08/16/23 Hospital Course: 77-year-old male with history of CAD status post CABG, dyslipidemia, BPH presenting with 2 days of altered mentation, upper respiratory symptoms as well as abdominal pain. Initial presentation, patient was febrile, requiring 2 L of oxygen via nasal cannula. Rest of the vitals within normal limits. Chest x-ray did not show any acute process. Brain CT shows suspected acute/subacute CVA involving the left frontal lobe, left mastoid air cell effusion and middle ear effusion concerning for otomastoiditis. Patient started on IV antibiotics. ID and neurology consulted. Echocardiogram showed normal LV systolic function, mild aortic regurgitation. Abdominal pelvis CT did not show any acute process. Brain MRI showed numerous tiny foci of increased signal involving the left peritrial region, subcortical and cortical regions of the higher frontal and high parietal regions. Cardiology consulted for MIC. Subjective: Patient seen and examined at bedside. No acute events overnight. Denies any other new complaints. He claims that his congestion is better, denies any nausea, vomiting, or abdominal pain. Pertinent positives and negatives as discussed above, a complete review of systems was performed and all other systems are negative. Vitals Signs Reviewed. General: Nontoxic, no distress, appears at stated age, tired appearing Derm: Warm, dry Head: Atraumatic, normocephalic, symmetric Eyes: EOMI, no lid lag, anicteric sclera Mouth: No lip lesion, mucus membranes moist Cardiovascular: S1S2 reg, no murmur Lungs: CTA bilateral, no rhonchi, no rales, no accessory muscle use Abdominal: Soft, nontender to palpation, no guarding, no appreciable organomegaly Ext: No gross muscle atrophy, no edema, no contractures Neuro: CN II-XI grossly intact, no focal neuro deficits Psych: Alert, oriented, appropriate affect Data Reviewed Today: Pertinent Labs: WBC 10.4, hemoglobin 12.3, platelet 146, sodium 128, bicarb 21, creatinine 0.78, glucose 125 Imaging: Brain MRI showed numerous tiny foci of increased signal involving the left Willis atrial region, subcortical and cortical regions of the higher frontal and high parietal regions Assessment and Plan: Active: Acute encephalopathy, resolving Embolic stroke, involving frontal and parietal regions Discussed management with neurology, will consult cardiology for MIC Also started on Plavix 75 daily, continue aspirin 81 mg daily and atorvastatin 10 mg Continue telemetry monitoring Continue neurochecks PT/OT/speech therapy Sepsis Otomastoiditis possible source Blood cultures no growth to date ID following, vancomycin discontinued, on IV Zosyn 3.375 g every 8 hours MIC pending to rule out endocarditis Hyponatremia, euvolemic Worsening with IV fluids, discontinue, repeat BMP tomorrow Urine sodium, urine osmolality, serum osmolality, a.m. cortisol ordered Nausea and vomiting Zofran 4 mg IV every 8 hours as needed Chronic: CAD status post CABG Dyslipidemia BPH DVT ppx: Subcu heparin Code status: Full code Anticipated discharge place: Pending clinical course Anticipated discharge time: Pending clinical course Objective - Vital Signs Vital signs: Vital Signs Temp 99.3 F 08/16/23 06:00 Pulse 48 L 08/16/23 08:00 Resp 16 08/16/23 08:00 BP 111/61 08/16/23 08:00 Pulse Ox 97 08/16/23 08:00 FiO2 Intake & Output 08/15/23 08/16/23 08/16/23 18:59 06:59 18:59 Output Total 400 Balance -400 Weight 86.183 kg Output: Urine 400 Other: Voiding Method Urinal Diaper # Voids 1 - Labs CBC & Chem 7: 08/16/23 06:36 08/16/23 06:36 Labs: Abnormal Lab Results - Last 24 Hours (Table) 08/15/23 08/15/23 08/15/23 Range/Units 14:32 14:32 14:32 WBC 11.4 H (3.8-10.6) k/uL RBC 4.08 L (4.30-5.90) m/uL Hgb (13.0-17.5) gm/dL Hct (39.0-53.0) % MCV 102.3 H (80.0-100.0) fL Plt Count 149 L (150-450) k/uL Neutrophils # 10.6 H (1.3-7.7) k/uL Lymphocytes # 0.4 L (1.0-4.8) k/uL Sodium 130 L (137-145) mmol/L Carbon Dioxide (22-30) mmol/L BUN 25 H (9-20) mg/dL Glucose 132 H (74-99) mg/dL Hemoglobin A1c 6.1 H (<=6.0) % Calcium 7.8 L (8.4-10.2) mg/dL Phosphorus 2.4 L (2.5-4.5) mg/dL C-Reactive Protein (<1.0) mg/dL Total Protein 5.3 L (6.3-8.2) g/dL Albumin 2.8 L (3.5-5.0) g/dL Lipase 20 L (23-300) U/L Procalcitonin (0.02-0.09) ng/mL 08/16/23 08/16/23 08/16/23 Range/Units 06:36 06:36 06:36 WBC (3.8-10.6) k/uL RBC 3.62 L (4.30-5.90) m/uL Hgb 12.3 L (13.0-17.5) gm/dL Hct 36.5 L (39.0-53.0) % MCV 100.9 H (80.0-100.0) fL Plt Count 146 L (150-450) k/uL Neutrophils # 8.7 H (1.3-7.7) k/uL Lymphocytes # 0.8 L (1.0-4.8) k/uL Sodium 128 L (137-145) mmol/L Carbon Dioxide 21 L (22-30) mmol/L BUN 25 H (9-20) mg/dL Glucose 125 H (74-99) mg/dL Hemoglobin A1c (<=6.0) % Calcium 7.6 L (8.4-10.2) mg/dL Phosphorus (2.5-4.5) mg/dL C-Reactive Protein 16.6 H (<1.0) mg/dL Total Protein 4.7 L (6.3-8.2) g/dL Albumin 2.5 L (3.5-5.0) g/dL Lipase (23-300) U/L Procalcitonin 0.13 H (0.02-0.09) ng/mL Microbiology - Last 24 Hours (Table) 08/14/23 20:45 Blood Culture - Preliminary Blood 08/14/23 20:30 Blood Culture - Preliminary Blood
[2023-08-16] MEDS: CLOPIDOGREL 75 MG TAB PO SCH (15:59)
[2023-08-16] MEDS: LACTATED RINGERS 1,000 ML IV SCH (18:40)
[2023-08-17 09:20] LABS: Basophils % (A) 0 %; Eosinophils % (A) 1 %; HCT 39.4 % (39.0-53.0); HGB 12.9 gm/dL (13.0-17.5); Lymphocytes # (A) 0.7 k/uL (1.0-4.8); Lymphocytes % (A) 12 %; MCH 33.5 pg (25.0-35.0); MCHC 32.7 g/dL (31.0-37.0); MCV 102.6 fL (80.0-100.0); Macrocytosis Slight; Monocytes # (A) 0.3 k/uL (0-1.0); Monocytes % (A) 6 %; Neutrophils # (A) 4.9 k/uL (1.3-7.7); Neutrophils % (A) 80 %; Platelet Count 141 k/uL (150-450); RBC 3.84 m/uL (4.30-5.90); RDW 12.7 % (11.5-15.5)
[2023-08-17 09:38] LABS: African American GFR (CKD) >90 (>60 ml/min/1.73 sqM); Anion Gap 5 mmol/L; Blood Urea Nitrogen 25 mg/dL (9-20); Calcium 7.7 mg/dL (8.4-10.2); Carbon Dioxide 23 mmol/L (22-30); Chloride 103 mmol/L (98-107); Glucose 98 mg/dL (74-99); Magnesium 2.3 mg/dL (1.6-2.3); Non-African American GFR(CKD) 79 (>60 ml/min/1.73 sqM); Potassium 3.8 mmol/L (3.5-5.1); Sodium 131 mmol/L (137-145)
--- NOTE | 2023-08-17 09:49 | P.PN ---
Subjective Progress Note Date: 08/16/23 Patient was seen for a follow-up. Patient just arrived on the floor in room #357, from the ER. Patient denies headache. He states he is feeling better. No new focal concerns. Objective - Vital Signs Vital signs: Vital Signs Temp 98.7 F 08/16/23 18:05 Pulse 67 08/16/23 18:05 Resp 16 08/16/23 18:05 BP 106/53 08/16/23 18:05 Pulse Ox 93 L 08/16/23 18:05 FiO2 Intake & Output 08/15/23 08/16/23 08/16/23 18:59 06:59 18:59 Output Total 400 Balance -400 Weight 86.183 kg Output: Urine 400 Other: Voiding Method Urinal Urinal Diaper Diaper # Voids 1 - Exam Patient is alert and awake. He knows it is August and the year is 2023. He can name and repeat very well. Rest of the examination deferred. - Labs CBC & Chem 7: 08/17/23 07:41 08/16/23 06:36 Labs: Abnormal Lab Results - Last 24 Hours (Table) 08/15/23 08/16/23 08/16/23 Range/Units 14:32 06:36 06:36 RBC 3.62 L (4.30-5.90) m/uL Hgb 12.3 L (13.0-17.5) gm/dL Hct 36.5 L (39.0-53.0) % MCV 100.9 H (80.0-100.0) fL Plt Count 146 L (150-450) k/uL Neutrophils # 8.7 H (1.3-7.7) k/uL Lymphocytes # 0.8 L (1.0-4.8) k/uL Sodium 128 L (137-145) mmol/L Carbon Dioxide 21 L (22-30) mmol/L BUN 25 H (9-20) mg/dL Glucose 125 H (74-99) mg/dL Hemoglobin A1c 6.1 H (<=6.0) % Calcium 7.6 L (8.4-10.2) mg/dL C-Reactive Protein 16.6 H (<1.0) mg/dL Total Protein 4.7 L (6.3-8.2) g/dL Albumin 2.5 L (3.5-5.0) g/dL Procalcitonin (0.02-0.09) ng/mL 08/16/23 Range/Units 06:36 RBC (4.30-5.90) m/uL Hgb (13.0-17.5) gm/dL Hct (39.0-53.0) % MCV (80.0-100.0) fL Plt Count (150-450) k/uL Neutrophils # (1.3-7.7) k/uL Lymphocytes # (1.0-4.8) k/uL Sodium (137-145) mmol/L Carbon Dioxide (22-30) mmol/L BUN (9-20) mg/dL Glucose (74-99) mg/dL Hemoglobin A1c (<=6.0) % Calcium (8.4-10.2) mg/dL C-Reactive Protein (<1.0) mg/dL Total Protein (6.3-8.2) g/dL Albumin (3.5-5.0) g/dL Procalcitonin 0.13 H (0.02-0.09) ng/mL Microbiology - Last 24 Hours (Table) 08/14/23 20:45 Blood Culture - Preliminary Blood 08/14/23 20:30 Blood Culture - Preliminary Blood Assessment and Plan Assessment: * Acute ischemic stroke, numerous, tiny foci of increased signal on DWI involving the left periatrial region, subcortical and cortical regions of the high frontal and high parietal region. Clinically, patient had episode of aphasia, that seems to have resolved. * Altered mental status, likely due above (multiple small areas of acute CVA), and also perhaps related to metabolic encephalopathy. Patient has been having high fever, abdominal pain with recent travel to a cruise ship to [facility]. * Fever, abdominal, with recent travel to a cruise to [facility]. * Recent history of pneumonia, being treated with amoxicillin. * History of triple bypass surgery. * Hypertension Plan: * MRI brain revealed on diffusion-weighted imaging, there are numerous tiny foci of increased signal involving the left periatrial region, subcortical and cortical region of the high frontal and high parietal region. I personally reviewed MRI, agree with the findings. The abnormality in the left frontal lobe seen on the CT scan however is chronic in nature. * 2D echo revealed normal left ventricular size and systolic function with EF 55 to 60%. Borderline left ventricular hypertrophy. Questionable right ventricular dilation. Severely increased left atrial diameter. Mild AR. * Carotid Doppler revealed no hemodynamically significant ICA stenosis on either side. Antegrade flow in both vertebral arteries. [employer] Operations Specialist noticed appa rent cardiac rhythm during the scan. Correlate clinically. Cardiology has been consulted. Patient on telemetry monitoring. Patient just came on the floor. We will review telemetry. * Hemoglobin A1c 6.1 * Fasting lipid panel with cholesterol 75, LDL 23, HDL 42, triglycerides 48. Continue Lipitor 10 mg daily. * B12 395, folate 12.10. TSH is normal. Start vitamin B12 1000 mcg orally daily for borderline B12. * Patient has multiple ischemic strokes noted on MRI of the brain. We will place patient on dual antiplatelet medication with aspirin 81 mg and Plavix 75 mg. * Discussed with primary physician. We will consult cardiology for possible transesophageal echocardiogram, to rule out vegetation, other embolic source.
[2023-08-17] MEDS: LACTATED RINGERS 1,000 ML IV SCH (11:00)
--- NOTE | 2023-08-17 11:36 | P.CRDCN ---
History of Present Illness History of present illness: HISTORY OF PRESENT ILLNESS: This is a 77-year-old male with a past medical history significant for CAD with previous CABG, HLD, and BPH. Patient follows with a teacher of family and consumer science out of [facility]. We have been asked to see the patient in consultation for need for MIC. Patient examined at the bedside. Patient states he was not feeling well at home. He reports having a fever and abdominal pain after going on a recent cruise. He reports that he was lethargic. His family member states he was unable to walk. He went to urgent care and was sent to the hospital by via EMS. The patient was evaluated by neurology and he underwent MRI which was abnormal. He denies chest pain or pressure. He denies shortness of breath. He denies any history of atrial fibrillation. Vital signs are stable. Telemetry reveals sinus mechanism. DIAGNOSTICS: - EKG reveals sinus mechanism with no signs of acute ischemia - Chest xray negative for acute process. COPD changes. - Laboratory data: WBC 10.4. Hemoglobin 12.3. Platelet count 146. Sodium 128. Potassium 3.5. BUN 25. Creatinine 0.78. Lactic acid 1.4. - Current home cardiac medications include Lipitor 10 mg at night, aspirin 81 mg daily, metoprolol tartrate 12.5 mg twice a day. -Echocardiogram obtained this admission reveals ejection fraction 55 to 60%, borderline LVH, trace MR, mild AR -CT abdomen pelvis: Nonobstructing left renal stone. Multiple parapelvic and renal cyst bilaterally. Diverticulosis without evidence of diverticulitis. Prostamegaly, no definite acute findings. -MRI of the brain: On diffusion-weighted images there are numerous tiny foci of increased signal involving the left periatrial region, subcortical and cortical regions of the high frontal and high parietal regions. -Carotid Doppler: No hemodynamically significant internal carotid artery stenosis. REVIEW OF SYSTEMS: At the time of my exam: CONSTITUTIONAL: Denies fever or chills. HEENT: Denies blurred vision, vision changes, or eye pain. Denies hemoptysis CARDIOVASCULAR: Denies chest pain. Denies orthopnea. Denies PND. Denies palpitations RESPIRATORY: Denies shortness of breath. GASTROINTESTINAL: Denies abdominal pain. Denies nausea or vomiting. HEMATOLOGIC: Denies bleeding disorders. GENITOURINARY: Denies any blood in urine. SKIN: Denies pruitis. Denies rash. PHYSICAL EXAM: VITAL SIGNS: Reviewed. GENERAL: Well-developed in no acute distress. HEENT: Head is normocephalic. Pupils are equal, round. Sclerae anicteric. Mucous membranes of the mouth are moist. Neck supple. No JVD or thyromegaly LUNGS: Respirations even and unlabored. Lungs essentially clear to auscultation bilaterally. HEART: Regular rate and rhythm. S1 and S2 heard. ABDOMEN: Soft. Nondistended. Nontender. EXTREMITIES: Normal range of motion. No clubbing or cyanosis. Peripheral pulses intact. No lower extremity edema NEUROLOGIC: Awake and alert. Oriented x 3. ASSESSMENT: Acute encephalopathy Acute embolic stroke Sepsis, possible otomastoiditis per CT, blood cultures are negative Hyponatremia History of CAD with previous CABG x 3 vessel, 2021 at [facility] Hyperlipidemia History of BPH History of whipple procedure PLAN: 2D echo obtained and reviewed Patient currently on Aspirin, Plavix, and statin therapy Unlikely endocarditis as blood cultures are negative. However neurology requesting MIC due to abnormal MRI Patient to undergo MIC tomorrow with Dr. Nhan ABILEYO at midnight Recommend event monitor at discharge to rule out atrial fibrillation Further recommendations pending patient course Nurse practitioner note has been reviewed by physician. Signing provider agrees with the documented findings, assessment, and plan of care documented by PUBLIC INFORMATION RELATIONS MANAGER as a scribe. Past Medical History Past Medical History: Cancer Additional Past Medical History / Comment(s): BLADDER CANCER History of Any Multi-Drug Resistant Organisms: None Reported Past Surgical History: Appendectomy, Back Surgery, Bladder Surgery, Tonsillectomy Additional Past Surgical History / Comment(s): oral surgery Past Anesthesia/Blood Transfusion Reactions: No Reported Reaction Past Psychological History: No Psychological Hx Reported Past Alcohol Use History: Occasional Past Drug Use History: None Reported - Past Family History Father Family Medical History: Cancer Additional Family Medical History / Comment(s): BLADDER CANCER Medications and Allergies Home Medications Medication Instructions Recorded Confirmed Type Aspirin [Adult Low Dose Aspirin EC] 81 mg PO DAILY 08/04/22 08/14/23 History Atorvastatin [Lipitor] 10 mg PO HS 08/04/22 08/14/23 History Metoprolol Tartrate 12.5 mg PO BID 08/04/22 08/14/23 History Tamsulosin [Flomax] 0.4 mg PO DAILY 08/04/22 08/15/23 History Amoxicillin 500 mg PO BID 08/14/23 08/14/23 History Betamethasone Dipropionate 1 applic TOPICAL DIRECTED PRN 08/14/23 08/14/23 History [Diprolene 0.05% Cream (GEQ)] Cholecalciferol [Vitamin D3 (25 25 mcg PO BID 08/14/23 08/14/23 History Mcg = 1000 Iu)] Allergies Allergy/AdvReac Type Severity Reaction Status Date / Time No Known Allergies Allergy Verified 08/14/23 22:15 Physical Exam Vitals: Vital Signs Temp Pulse Resp BP Pulse Ox 08/16/23 13:47 98.8 F 53 L 17 110/56 08/16/23 08:00 53 L 17 111/61 97 08/16/23 06:00 99.3 F 08/16/23 04:15 100.3 F H 58 L 20 139/72 94 L 08/16/23 00:00 99.1 F 62 20 143/62 93 L 08/15/23 20:00 98.8 F 58 L 20 135/65 93 L 08/15/23 15:46 99.0 F 58 L 20 140/69 95 Intake and Output 08/15/23 08/16/23 08/16/23 22:59 06:59 14:59 Output Total 400 Balance -400 Output: Urine 400 Other: Voiding Method Urinal Urinal Diaper Diaper # Voids 1 Weight 86.183 kg Results 08/17/23 07:41 08/17/23 07:41 Cardiac Enzymes 08/15/23 08/16/23 Range/Units 14:32 06:36 AST 19 19 (17-59) U/L Lipids 08/15/23 Range/Units 14:32 Triglycerides 48.50 (0.00-149.00) mg/dL Cholesterol 75.00 (0.00-200.00) mg/dL HDL Cholesterol 42.20 (40.00-60.00) mg/dL Cholesterol/HDL Ratio 1.78 Ratio CBC 08/15/23 08/16/23 Range/Units 14:32 06:36 WBC 11.4 H 10.4 (3.8-10.6) k/uL RBC 4.08 L 3.62 L (4.30-5.90) m/uL Hgb 13.7 12.3 L (13.0-17.5) gm/dL Hct 41.7 36.5 L (39.0-53.0) % Plt Count 149 L 146 L (150-450) k/uL Comprehensive Metabolic Panel 08/15/23 08/16/23 Range/Units 14:32 06:36 Sodium 130 L 128 L (137-145) mmol/L Potassium 4.0 3.5 (3.5-5.1) mmol/L Chloride 101 103 (98-107) mmol/L Carbon Dioxide 22 21 L (22-30) mmol/L BUN 25 H 25 H (9-20) mg/dL Creatinine 0.80 0.78 (0.66-1.25) mg/dL Glucose 132 H 125 H (74-99) mg/dL Calcium 7.8 L 7.6 L (8.4-10.2) mg/dL AST 19 19 (17-59) U/L ALT 18 16 (4-49) U/L Alkaline Phosphatase 62 56 (38-126) U/L Total Protein 5.3 L 4.7 L (6.3-8.2) g/dL Albumin 2.8 L 2.5 L (3.5-5.0) g/dL Current Medications Generic Name Dose Route Start Last Admin Trade Name Freq PRN Reason Stop Dose Admin Acetaminophen 650 mg 08/14/23 20:29 08/16/23 04:32 Acetaminophen Tab 325 Mg Tab PO 650 mg Q6HR PRN Administration Mild Pain or Fever > 100.5 Aspirin 81 mg 08/16/23 09:00 08/16/23 08:11 Aspirin 81 Mg PO 81 mg DAILY SYBIL Administration Atorvastatin Calcium 10 mg 08/15/23 21:00 08/15/23 19:54 Atorvastatin 10 Mg Tab PO 10 mg HS SYBIL Administration Clopidogrel Bisulfate 75 mg 08/16/23 13:45 Clopidogrel 75 Mg Tab PO DAILY [facility] Heparin Sodium (Porcine) 5,000 unit 08/15/23 08:00 08/16/23 08:10 Heparin Sodium,Porcine 5,000 Unit/Ml 1 Ml Vial SQ 5,000 unit Q8HR SYBIL Administration Piperacillin Sod/Tazobactam 100 mls @ 25 mls/hr 08/15/23 12:00 08/16/23 13:06 Sod 3.375 gm/ Sodium Chloride IVPB 25 mls/hr Q8H SYBIL Administration Protocol Metoprolol Tartrate 12.5 mg 08/15/23 09:00 08/16/23 08:11 Metoprolol Tartrate 25 Mg Tab PO 12.5 mg BID SYBIL Administration Naloxone HCl 0.2 mg 08/14/23 20:29 Naloxone 0.4 Mg/Ml 1 Ml Vial IV Q2M PRN Opioid Reversal Ondansetron HCl 4 mg 08/14/23 20:29 08/15/23 09:36 Ondansetron 4 Mg/2 Ml Vial IVP 4 mg Q8HR PRN Administration Nausea And Vomiting Pantoprazole Sodium 40 mg 08/15/23 10:00 08/16/23 08:10 Pantoprazole 40 Mg/10 Ml Vial IVP 40 mg DAILY SYBIL Administration Tamsulosin HCl 0.4 mg 08/15/23 09:00 08/16/23 08:11 Tamsulosin 0.4 Mg Cap.Er.24h PO 0.4 mg DAILY SYBIL Administration Intake and Output 08/15/23 08/16/23 08/16/23 22:59 06:59 14:59 Output Total 400 Balance -400 Output: Urine 400 Other: Voiding Method Urinal Urinal Diaper Diaper # Voids 1 Weight 86.183 kg 08/16/23 06:36 08/16/23 06:36
--- NOTE | 2023-08-17 11:47 | P.PN ---
Subjective Progress Note Date: 08/16/23 Principal diagnosis: Reason for follow-up is fever Patient is a 77-year-old male with a past medical his significant for bladder cancer patient was brought into the hospital for evaluation of mental status changes with recent diagnosis of pneumonia in outpatient setting, chest x-ray negative CT abdominal pelvis no acute abnormality, MRI of the brain with numerous foci of increased signal involving the left parietal region. On today's visit that is 08/16/2023,the patient did have a low-grade fever 100.3 at 4 AM afebrile this morning, patient is breathing comfortably on room air, the patient denies chest pain shortness of breath did have occasional cough some cl ear sputum, patient denies abdominal pain, no nausea vomiting or diarrhea, patient also complaining of some discomfort to the left ear but no drainage Patient white count normalized to 10.4, creatinine 0.78 Objective - Vital Signs Vital signs: Vital Signs Temp 99.3 F 08/16/23 06:00 Pulse 48 L 08/16/23 08:00 Resp 16 08/16/23 08:00 BP 111/61 08/16/23 08:00 Pulse Ox 97 08/16/23 08:00 FiO2 Intake & Output 08/15/23 08/16/23 08/16/23 18:59 06:59 18:59 Output Total 400 Balance -400 Weight 86.183 kg Output: Urine 400 Other: Voiding Method Urinal Diaper # Voids 1 - Exam GENERAL DESCRIPTION: An elderly male lying in bed in no distress. HEENT: Left parotid area did have minimal swelling no drainage was noticed RESPIRATORY SYSTEM: Unlabored breathing , decreased breath sounds at bases HEART: S1 S2 regular rate and rhythm , ABDOMEN: Soft , no tenderness EXTREMITIES: No edema feet - Labs CBC & Chem 7: 08/17/23 07:41 08/17/23 07:41 Labs: Abnormal Lab Results - Last 24 Hours (Table) 08/15/23 08/15/23 08/15/23 Range/Units 14:32 14:32 14:32 WBC 11.4 H (3.8-10.6) k/uL RBC 4.08 L (4.30-5.90) m/uL Hgb (13.0-17.5) gm/dL Hct (39.0-53.0) % MCV 102.3 H (80.0-100.0) fL Plt Count 149 L (150-450) k/uL Neutrophils # 10.6 H (1.3-7.7) k/uL Lymphocytes # 0.4 L (1.0-4.8) k/uL Sodium 130 L (137-145) mmol/L Carbon Dioxide (22-30) mmol/L BUN 25 H (9-20) mg/dL Glucose 132 H (74-99) mg/dL Hemoglobin A1c 6.1 H (<=6.0) % Calcium 7.8 L (8.4-10.2) mg/dL Phosphorus 2.4 L (2.5-4.5) mg/dL C-Reactive Protein (<1.0) mg/dL Total Protein 5.3 L (6.3-8.2) g/dL Albumin 2.8 L (3.5-5.0) g/dL Lipase 20 L (23-300) U/L 08/16/23 08/16/23 Range/Units 06:36 06:36 WBC (3.8-10.6) k/uL RBC 3.62 L (4.30-5.90) m/uL Hgb 12.3 L (13.0-17.5) gm/dL Hct 36.5 L (39.0-53.0) % MCV 100.9 H (80.0-100.0) fL Plt Count 146 L (150-450) k/uL Neutrophils # 8.7 H (1.3-7.7) k/uL Lymphocytes # 0.8 L (1.0-4.8) k/uL Sodium 128 L (137-145) mmol/L Carbon Dioxide 21 L (22-30) mmol/L BUN 25 H (9-20) mg/dL Glucose 125 H (74-99) mg/dL Hemoglobin A1c (<=6.0) % Calcium 7.6 L (8.4-10.2) mg/dL Phosphorus (2.5-4.5) mg/dL C-Reactive Protein 16.6 H (<1.0) mg/dL Total Protein 4.7 L (6.3-8.2) g/dL Albumin 2.5 L (3.5-5.0) g/dL Lipase (23-300) U/L Assessment and Plan (1) Fever Current Visit: Yes Status: Acute Code(s): R50.9 - FEVER, UNSPECIFIED SNOMED Code(s): 759211386 Plan: 1patient presented to the hospitalized weakness noticed to have a fever did have some respiratory symptoms apparently diagnosed with the pneumonia as an outpatient failing outpatient oral amoxicillin therapy patient did have mild hypoxemia no abdominal tenderness was noticed and no evidence of any cellulitis no joint swelling 2- sputum for Gram stain culture currently pending, patient did have a CRP of 16.6 and a Pro-Lorenzo of 0.13 3-patient did have abnormality on the MRI of the brain question of ischemic stroke infectious etiology not excluded blood culture has been negative for cardiology has been consulted for MIC 4patient continue with the Zosyn while waiting for the workup to be completed at the bedside questions answered Dictation was produced using [employer] dictation software. please excuse any grammatical, word or spelling errors. Time with Patient: Less than 30
--- NOTE | 2023-08-17 11:48 | P.PN ---
Subjective Progress Note Date: 08/17/23 Principal diagnosis: Reason for follow-up is fever Patient is a 77-year-old male with a past medical his significant for bladder cancer patient was brought into the hospital for evaluation of mental status changes with recent diagnosis of pneumonia in outpatient setting, chest x-ray negative CT abdominal pelvis no acute abnormality, MRI of the brain with numerous foci of increased signal involving the left parietal region. On today's visit that is 08/17/2023, Patient did spike another fever of 101.1 F yesterday afternoon however is afebrile this morning, patient is currently on room air and denies having any shortness of breath, the patient denies any chest pain, did have occasional cough, the patient denies any nausea vomiting did not have any abdominal pain and no diarrhea, denies pain to the left ear or any drainage Patient white count is 6.0 creatinine 0.94 Objective - Vital Signs Vital signs: Vital Signs Temp 99 F 08/17/23 08:00 Pulse 58 L 08/17/23 08:00 Resp 16 08/17/23 08:00 BP 144/74 08/17/23 08:00 Pulse Ox 94 L 08/17/23 08:00 FiO2 Intake & Output 08/16/23 08/17/23 08/17/23 18:59 06:59 18:59 Intake Total 20 Output Total 950 Balance -930 Intake: IV 20 Invasive Line 2 10 Invasive Line 3 10 Output: Urine 950 Other: Voiding Method Urinal Urinal Urinal Diaper - Exam GENERAL DESCRIPTION: An elderly male lying in bed in no distress. HEENT: Left parotid area swelling has resolved and no drainage from the left ear RESPIRATORY SYSTEM: Unlabored breathing , decreased breath sounds at bases HEART: S1 S2 regular rate and rhythm , ABDOMEN: Soft , no tenderness EXTREMITIES: No edema feet - Labs CBC & Chem 7: 08/17/23 07:41 08/17/23 07:41 Labs: Abnormal Lab Results - Last 24 Hours (Table) 08/16/23 08/16/23 08/17/23 Range/Units 15:30 15:30 07:41 RBC 3.84 L (4.30-5.90) m/uL Hgb 12.9 L (13.0-17.5) gm/dL MCV 102.6 H (80.0-100.0) fL Plt Count 141 L (150-450) k/uL Lymphocytes # 0.7 L (1.0-4.8) k/uL Sodium (137-145) mmol/L BUN (9-20) mg/dL Calcium (8.4-10.2) mg/dL Urine Osmolality 225 L (400-1100) mOsm/kg Ur Random Sodium <20 L (40-220) mmol/L 08/17/23 Range/Units 07:41 RBC (4.30-5.90) m/uL Hgb (13.0-17.5) gm/dL MCV (80.0-100.0) fL Plt Count (150-450) k/uL Lymphocytes # (1.0-4.8) k/uL Sodium 131 L (137-145) mmol/L BUN 25 H (9-20) mg/dL Calcium 7.7 L (8.4-10.2) mg/dL Urine Osmolality (400-1100) mOsm/kg Ur Random Sodium (40-220) mmol/L Microbiology - Last 24 Hours (Table) 08/14/23 20:45 Blood Culture - Preliminary Blood 08/14/23 20:30 Blood Culture - Preliminary Blood Assessment and Plan (1) Fever Current Visit: Yes Status: Acute Code(s): R50.9 - FEVER, UNSPECIFIED SNOMED Code(s): 323434221 Plan: 1patient presented to the hospitalized weakness noticed to have a fever did have some respiratory symptoms apparently diagnosed with the pneumonia as an outpatient failing outpatient oral amoxicillin therapy patient did have mild hypoxemia no abdominal tenderness was noticed and no evidence of any cellulitis no joint swelling 2- sputum for Gram stain culture currently pending, patient did have a CRP of 16.6 and a Pro-Lorenzo of 0.13 3-patient did have abnormality on the MRI of the brain question of ischemic stroke infectious etiology not excluded blood culture has been negative for cardiology has been consulted for MIC scheduled for this afternoon 4patient continue with the Zosyn in view of resolution of his fever while waiting for the workup to be completed at the bedside questions answered Dictation was produced using [employer] dictation software. please excuse any grammatical, word or spelling errors. Time with Patient: Less than 30
--- NOTE | 2023-08-17 15:01 | P.PN ---
Subjective Progress Note Date: 08/17/23 (delayed charting seen at approx 1045) Patient is a 77-year-old male with history of bladder cancer, high cholesterol, and high blood pressure who presented to the emergency department with complai nts of altered mentation. In the emergency department he underwent an extensive evaluation. Initial laboratory analysis showed a white blood cell count of 13.6, sodium 130, BUN 24. Procalcitonin was negative, TSH was normal at 0.84. Influenza A/B/RSV/COVID-19 testing was negative. Initial head CT demonstrated age indeterminant CVA involving the left frontal lobe with left mastoid air cell effusion. Initial chest x-ray demonstrated no acute process. In the ER he was given a dose of aspirin. He was admitted for probable stroke. He was also started on vancomycin and Zosyn for possible mastoiditis. He was seen by neurology. He underwent carotid Dopplers which showed no hemodynamically significant stenosis. He underwent echocardiogram which demonstrated ejection fraction 55-60 with borderline LVH and severely increased left atrial diameter. He underwent MRI brain which demonstrated tiny foci of increased signal involving the left parietal region, subcortical and cortical regions of the high frontal and parietal regions. Due to patient's fever he underwent a CT abdomen and pelvis to rule out additional foci of infection which came back with nonobstructing left renal stone and diverticulosis without evidence of diverticulitis along with prostatomegaly. Due to having multiple areas of embolic strokes cardiology was consulted for possible MIC. Patient seen and examined at bedside. He is doing well. He has no complaints currently. Denies any chest pain or shortness of breath. He does continue to have some left ear pain. Vital signs reviewed General: Nontoxic, no distress, appears at stated age Cardiovascular: S1S2 reg, no murmur Lungs: CTA bilateral, no rhonchi, no rales, no accessory muscle use Abdominal: Soft, nontender to palpation, no guarding Ext: No gross muscle atrophy, no edema b/l lower extremities, no contractures Neuro: CN II-XI grossly intact, no focal neuro deficits Psych: Alert, oriented, appropriate affect Assessment/Plan: Acute to subacute embolic CVAs in the left frontal and parietal region Acute encephalopathy -Cardiology consult reviewed: MIC at 08/17. -Neurology note reviewed from 08/16/2023: Continue with aspirin, Plavix, and statin Hemoglobin A1c 6.1 Fasting lipid panel with cholesterol 75, LDL 23, HDL 42, triglycerides 48. Continue Lipitor 10 mg daily. B12 395, folate 12.10. TSH normal. -Aspirin 81 mg daily, Lipitor 10 mg at night, Plavix 75 mg daily, Lopressor 12.5 mg twice daily -Telemetry without any signs of A-fib -Follow blood pressures -Await MIC Sepsis Mastoiditis, possible source of sepsis -Infectious disease note reviewed from 08/16: Continue with Zosyn. -Decrease IV fluids to 75 cc/h of lactated Ringer's -Zosyn 3.37 g IV piggyback every 8 hours -Blood cultures negative to date Hyponatremia, hypovolemic and fluid responsive -Decrease lactated Ringer's to 75 cc/h -Recheck BMP in a.m. Chronic: Coronary artery disease status post CABG Dyslipidemia BPH Hypertension Resolved: Nausea and vomiting Imaging: None new Data Review: Labs reviewed from today include CBC and basic metabolic profile which are remarkable for hemoglobin 12.9, platelets 141, sodium 131. Urine osmolality 225 with urine sodium less than 20 DVT prophylaxis: Heparin Anticipated discharge date: Pending clinical course Anticipated discharge place: Pending clinical course This dictation was prepared using [employer] voice recognition software. Though every attempt is made to correct errors during dictation some may still exist. Objective - Vital Signs Vital signs: Vital Signs Temp 99 F 08/17/23 08:00 Pulse 56 L 08/17/23 12:00 Resp 16 08/17/23 12:00 BP 130/63 08/17/23 12:00 Pulse Ox 95 08/17/23 12:00 FiO2 Intake & Output 08/16/23 08/17/23 08/17/23 18:59 06:59 18:59 Intake Total 20 Output Total 950 Balance -930 Intake: IV 20 Invasive Line 2 10 Invasive Line 3 10 Output: Urine 950 Other: Voiding Method Urinal Urinal Urinal Diaper - Labs CBC & Chem 7: 08/17/23 07:41 08/17/23 07:41 Labs: Abnormal Lab Results - Last 24 Hours (Table) 08/16/23 08/16/23 08/17/23 Range/Units 15:30 15:30 07:41 RBC 3.84 L (4.30-5.90) m/uL Hgb 12.9 L (13.0-17.5) gm/dL MCV 102.6 H (80.0-100.0) fL Plt Count 141 L (150-450) k/uL Lymphocytes # 0.7 L (1.0-4.8) k/uL Sodium (137-145) mmol/L BUN (9-20) mg/dL Calcium (8.4-10.2) mg/dL Urine Osmolality 225 L (400-1100) mOsm/kg Ur Random Sodium <20 L (40-220) mmol/L 08/17/23 Range/Units 07:41 RBC (4.30-5.90) m/uL Hgb (13.0-17.5) gm/dL MCV (80.0-100.0) fL Plt Count (150-450) k/uL Lymphocytes # (1.0-4.8) k/uL Sodium 131 L (137-145) mmol/L BUN 25 H (9-20) mg/dL Calcium 7.7 L (8.4-10.2) mg/dL Urine Osmolality (400-1100) mOsm/kg Ur Random Sodium (40-220) mmol/L Microbiology - Last 24 Hours (Table) 08/14/23 20:45 Blood Culture - Preliminary Blood 08/14/23 20:30 Blood Culture - Preliminary Blood
--- NOTE | 2023-08-18 09:40 | P.PN ---
Subjective Progress Note Date: 08/17/23 Patient was seen for a follow-up. Patient is laying comfortably in the bed. Patient denies headache. He states he is feeling better. No new focal concerns. Objective - Vital Signs Vital signs: Vital Signs Temp 99 F 08/17/23 08:00 Pulse 62 08/17/23 16:00 Resp 16 08/17/23 16:00 BP 144/73 08/17/23 16:00 Pulse Ox 94 L 08/17/23 16:00 FiO2 Intake & Output 08/17/23 08/17/23 08/18/23 06:59 18:59 06:59 Intake Total 20 600 Output Total 950 Balance -930 600 Intake: IV 20 Invasive Line 2 10 Invasive Line 3 10 Intake, IV Titration 600 Amount Lactated Ringers 1,000 ml 600 @ 75 mls/hr IV .[id number] [facility] Rx#:[id number] Output: Urine 950 Other: Voiding Method Urinal Urinal - Exam Patient is alert and awake. He knows it is August and the year is 2023. He can name and repeat very well. Rest of the examination nonfocal. - Labs CBC & Chem 7: 08/17/23 07:41 08/17/23 07:41 Labs: Abnormal Lab Results - Last 24 Hours (Table) 08/16/23 08/16/23 08/17/23 Range/Units 15:30 15:30 07:41 RBC 3.84 L (4.30-5.90) m/uL Hgb 12.9 L (13.0-17.5) gm/dL MCV 102.6 H (80.0-100.0) fL Plt Count 141 L (150-450) k/uL Lymphocytes # 0.7 L (1.0-4.8) k/uL Sodium (137-145) mmol/L BUN (9-20) mg/dL Calcium (8.4-10.2) mg/dL Urine Osmolality 225 L (400-1100) mOsm/kg Ur Random Sodium <20 L (40-220) mmol/L 08/17/23 Range/Units 07:41 RBC (4.30-5.90) m/uL Hgb (13.0-17.5) gm/dL MCV (80.0-100.0) fL Plt Count (150-450) k/uL Lymphocytes # (1.0-4.8) k/uL Sodium 131 L (137-145) mmol/L BUN 25 H (9-20) mg/dL Calcium 7.7 L (8.4-10.2) mg/dL Urine Osmolality (400-1100) mOsm/kg Ur Random Sodium (40-220) mmol/L Microbiology - Last 24 Hours (Table) 08/16/23 15:30 Gram Stain - Preliminary Sputum 08/14/23 20:45 Blood Culture - Preliminary Blood 08/14/23 20:30 Blood Culture - Preliminary Blood Assessment and Plan Assessment: * Acute ischemic stroke, numerous, tiny foci of increased signal on DWI involving the left periatrial region, subcortical and cortical regions of the high frontal and high parietal region. Clinically, patient had episode of aphasia, that seems to have resolved. * Altered mental status, likely due above (multiple small areas of acute CVA), and also perhaps related to metabolic encephalopathy. Patient has been having high fever, abdominal pain with recent travel to a cruise ship to [facility]. Mentation much improved. * Fever, abdominal, with recent travel to a cruise to [facility]. Fever resolved. * Recent history of pneumonia, being treated with amoxicillin. * History of triple bypass surgery. * Hypertension Plan: * MRI brain revealed on diffusion-weighted imaging, there are numerous tiny foci of increased signal involving the left periatrial region, subcortical and cortical region of the high frontal and high parietal region. I personally reviewed MRI, agree with the findings. The abnormality in the left frontal lobe seen on the CT scan however is chronic in nature. * 2D echo revealed normal left ventricular size and systolic function with EF 55 to 60%. Borderline left ventricular hypertrophy. Questionable right ventricular dilation. Severely increased left atrial diameter. Mild AR. * Patient undergoing MIC in the morning to rule out vegetations. * ID also on board, patient currently on Zosyn. * Carotid Doppler revealed no hemodynamically significant ICA stenosis on either side. Antegrade flow in both vertebral arteries. Returned Materials Inspector noticed apparent cardiac rhythm during the scan. Correlate clinically. Cardiology has been consulted. * Hemoglobin A1c 6.1 * Fasting lipid panel with cholesterol 75, LDL 23, HDL 42, triglycerides 48. Continue Lipitor 10 mg daily. * B12 395, folate 12.10. TSH is normal. Start vitamin B12 1000 mcg orally daily for borderline B12. * Patient has multiple ischemic strokes noted on MRI of the brain. We will place patient on dual antiplatelet medication with aspirin 81 mg and Plavix 75 mg. Patient was on aspirin monotherapy prior to arrival to hospital.
[2023-08-18 09:46] LABS: HCT 40.6 % (39.0-53.0); HGB 13.2 gm/dL (13.0-17.5); MCH 33.4 pg (25.0-35.0); MCHC 32.5 g/dL (31.0-37.0); MCV 102.7 fL (80.0-100.0); Macrocytosis Slight; Mean Platelet Volume 9.2; Platelet Count 141 k/uL (150-450); RBC 3.96 m/uL (4.30-5.90); RDW 12.8 % (11.5-15.5); WBC 6.1 k/uL (3.8-10.6)
[2023-08-18 10:08] LABS: ALT 25 U/L (4-49); AST 23 U/L (17-59); African American GFR (CKD) >90 (>60 ml/min/1.73 sqM); Albumin 2.6 g/dL (3.5-5.0); Alkaline Phosphatase 55 U/L (38-126); Anion Gap 1 mmol/L; Blood Urea Nitrogen 15 mg/dL (9-20); Calcium 7.5 mg/dL (8.4-10.2); Carbon Dioxide 27 mmol/L (22-30); Chloride 102 mmol/L (98-107); Glucose 98 mg/dL (74-99); Magnesium 2.2 mg/dL (1.6-2.3); Non-African American GFR(CKD) 85 (>60 ml/min/1.73 sqM); Potassium 3.8 mmol/L (3.5-5.1); Sodium 130 mmol/L (137-145); Total Protein 4.9 g/dL (6.3-8.2)
[2023-08-18] MEDS: SODIUM CHLORIDE 0.9% 500 ML 500 ML IV ONE (10:55)
[2023-08-18] MEDS: BENZOCAINE SPRAY 1 CAN TOPICAL ONE (11:03)
[2023-08-18] MEDS: fentaNYL (PF) 50 MCG/1 ML VIAL IVP ONE (11:16)
[2023-08-18] MEDS: MIDAZOLAM 2 MG/2 ML VIAL IVP ONE ×2 (11:16→11:18)
--- NOTE | 2023-08-18 13:45 | P.TEE ---
Date of Procedure: 08/18/23 Description of Procedure(s): Procedure performed: 1. Transesophageal Echocardiogram with color flow doppler, pulsed wave doppler and continuous wave doppler 2. Moderate conscious sedation. Sedation time 15 mins. 3. Bubble Study Indications: Embolic CVA Consent: I have discussed the risks, benefits and alternative therapies for the above-mentioned procedure. The patient has indicated understanding and acceptance of the risks of the procedure. Signed consent was obtained and was placed in the paper chart. Procedural Steps: Timeout was performed in usual fashion. Patient's heart rate, blood pressure, oxygen saturation and ECG were monitored. Benzocaine was sprayed liberally in the back of the throat. Bite block was placed between the jaw. 3 mg of Versed and 50 mcg of Fentanyl were administered intravenously. After achieving appropriate moderate conscious sedation, MIC probe was advanced without difficulty and without any immediate complications to the esophagus. MIC study was performed with color flow doppler, pulsed wave doppler and continuous wave doppler. The probe was then removed. Patient tolerated the procedure well. Patient was transferred to the post procedure area in stable and satisfactory condition. Throughout the procedure patient's heart rate, blood pressure, oxygen saturation and ECG were monitored. Total sedation time 15 mins. Complications: none FINDINGS Left Atrium: Mild left atrial dilatation. No evidence of mass or thrombus seen Left Atrial Appendage: No evidence of thrombus or mass seen in SUREKHA Inter atrial septum: Small PFO with bidirectional flow. Right to left shunting noticed on bubble study. [id number] shunting noticed on color Doppler. Left Ventricle: Normal global LV size and systolic function Right Atrium: Normal overall RA size Right Ventricle: Normal global RV size and systolic function Aortic Valve: Structurally normal Trileaflet, Mild aortic regurgitation. Mitral Valve: Structurally normal leaflets. Moderate functional mitral regurgitation Pulmonic Valve: Not well visualized. Tricuspid Valve: Structurally normal. Mild TR Ascending aorta, Aortic root and Aortic arch: Normal size aortic root and ascending aorta. Mild intimal thickening. Descending aorta: Mild calcific atheroma noticed in descending aorta 2 mm CONCLUSION: Small PFO with bidirectional flow. Positive bubble study with [id number] intracardiac shunting through PFO Moderate functional MR Mild aortic regurgitation Mild calcific atheroma in descending aorta Mild left atrial dilatation Zachary Justin MD, RPVI, FACC Thank you for allowing [facility] to participate in this patient's care. Feel free to reach out in case of any followup questions.
--- NOTE | 2023-08-18 13:48 | P.PN ---
Subjective Progress Note Date: 08/18/23 Principal diagnosis: Reason for follow-up is fever Patient is a 77-year-old male with a past medical his significant for bladder cancer patient was brought into the hospital for evaluation of mental status changes with recent diagnosis of pneumonia in outpatient setting, chest x-ray negative CT abdominal pelvis no acute abnormality, MRI of the brain with numerous foci of increased signal involving the left parietal region. On today's visit that is 08/18/2023, the patient continues to be afebrile, the patient is on room air and breathing comfortably, the Pt denies having any chest pain or cough, the patient denies having any abdominal pain no vomiting mention he did have a bowel movement and is feeling better, no new symptoms. Patient did have white count of 6.1, creatinine 0.84 blood culture has been negative sputum is pending Objective - Vital Signs Vital signs: Vital Signs Temp 98.5 F 08/18/23 04:00 Pulse 53 L 08/18/23 11:37 Resp 14 08/18/23 11:37 BP 123/67 08/18/23 11:37 Pulse Ox 92 L 08/18/23 11:37 FiO2 Intake & Output 08/17/23 08/18/23 08/18/23 18:59 06:59 18:59 Intake Total 600 10 200 Output Total 1150 550 Balance 600 -1140 -350 Intake: IV 10 200 Invasive Line 2 10 Intake, IV Titration 600 Amount Lactated Ringers 1,000 ml 600 @ 75 mls/hr IV .[id number] [facility] Rx#:[id number] Output: Urine 1150 550 Other: Voiding Method Urinal Urinal # Voids 2 # Bowel Movements 1 - Exam GENERAL DESCRIPTION: An elderly male lying in bed in no distress. HEENT: Left parotid area swelling has resolved and no drainage from the left ear RESPIRATORY SYSTEM: Unlabored breathing , decreased breath sounds at bases HEART: S1 S2 regular rate and rhythm , ABDOMEN: Soft , no tenderness EXTREMITIES: No edema feet - Labs CBC & Chem 7: 08/18/23 07:48 08/18/23 07:48 Labs: Abnormal Lab Results - Last 24 Hours (Table) 08/18/23 08/18/23 Range/Units 07:48 07:48 RBC 3.96 L (4.30-5.90) m/uL MCV 102.7 H (80.0-100.0) fL Plt Count 141 L (150-450) k/uL Sodium 130 L (137-145) mmol/L Calcium 7.5 L (8.4-10.2) mg/dL Total Protein 4.9 L (6.3-8.2) g/dL Albumin 2.6 L (3.5-5.0) g/dL Microbiology - Last 24 Hours (Table) 08/16/23 15:30 Gram Stain - Preliminary Sputum 08/14/23 20:45 Blood Culture - Preliminary Blood 08/14/23 20:30 Blood Culture - Preliminary Blood Assessment and Plan (1) Fever Current Visit: Yes Status: Acute Code(s): R50.9 - FEVER, UNSPECIFIED SNOMED Code(s): 561546853 Plan: 1patient presented to the hospitalized weakness noticed to have a fever did have some respiratory symptoms apparently diagnosed with the pneumonia as an outpatient failing outpatient oral amoxicillin therapy patient did have mild hypoxemia no abdominal tenderness was noticed and no evidence of any cellulitis no joint swelling 2- sputum for Gram stain culture currently pending, patient did have a CRP of 16.6 and a Pro-Lorenzo of 0.13 3-patient did have abnormality on the MRI of the brain question of ischemic stroke infectious etiology not excluded blood culture has been negative for cardiology has been consulted for MIC which was completed this morning official report is pending nursing staff mention small PFO but no indication 4patient continue with the Zosyn however if the culture remains negative will transition to oral antibiotics on discharge Dictation was produced using [employer] dictation software. please excuse any grammatical, word or spelling errors. Time with Patient: Less than 30
[2023-08-18] MEDS: METOPROLOL TARTRATE 12.5 MG TAB PO SCH (13:52)
[2023-08-18 16:19] VITALS: BP 144/76; PULSE 54; RESP 16; TEMP 98.2
--- NOTE | 2023-08-18 16:20 | P.DS ---
Providers Date of admission: 08/16/23 17:26 Expected date of discharge: 08/18/23 Attending physician: Darrian Huff MD Consults: 08/14/23 20:29 Consult Physician Routine Consulting Provider: Enoc Jackson Consult Reason/Comments: cva Do you want consulting provider notified?: Yes Consult Physician Routine Consulting Provider: Arley Sanford Consult Reason/Comments: fever Do you want consulting provider notified?: Yes 08/16/23 13:34 Consult Physician Routine Consulting Provider: Victor Hugo Whitehead Consult Reason/Comments: embolic stroke, also febrile, needs MIC, r/o endocarditis Do you want consulting provider notified?: Yes Primary care physician: Dre Osei MD Hospital Course: Discharge Diagnosis: Acute to subacute embolic CVAs in the left frontal and parietal region Acute encephalopathy Sepsis secondary to mastoiditis Hypovolemic hyponatremia Dyslipidemia BPH Hypertension Hospital Course: Patient is a 77-year-old male with history of bladder cancer, high cholesterol, and high blood pressure who presented to the emergency department with complaints of altered mentation. In the emergency department he underwent an extensive evaluation. Initial laboratory analysis showed a white blood cell count of 13.6, sodium 130, BUN 24. Procalcitonin was negative, TSH was normal at 0.84. Influenza A/B/RSV/COVID-19 testing was negative. Initial head CT demonstrated age indeterminant CVA involving the left frontal lobe with left mastoid air cell effusion. Initial chest x-ray demonstrated no acute process. In the ER he was given a dose of aspirin. He was admitted for probable stroke. He was also started on vancomycin and Zosyn for possible mastoiditis. He was seen by neurology. He underwent carotid Dopplers which showed no hem odynamically significant stenosis. He underwent echocardiogram which demonstrated ejection fraction 55-60 with borderline LVH and severely increased left atrial diameter. He underwent MRI brain which demonstrated tiny foci of increased signal involving the left parietal region, subcortical and cortical regions of the high frontal and parietal regions. Due to patient's fever he underwent a CT abdomen and pelvis to rule out additional foci of infection which came back with nonobstructing left renal stone and diverticulosis without evidence of diverticulitis along with prostatomegaly. Consideration was made for MRV but patient had resolution of his symptoms and fevers. Due to having multiple areas of embolic strokes cardiology was consulted for MIC which was performed on 08/18/23 and demonstrated small PFO with bidirectional flow and positive bubble study for right to left intracardiac shunting as well as mild valvular disease. Case was discussed with cardiology and neurology. Patient was determined stable for discharge with plans for 30-day event monitor, aspirin, Plavix, and statin therapy. Case was discussed with infectious disease who recommended 10 days of Augmentin for possible left-sided mastoiditis. Follow-up: Dr. Osei in 1 to 2 days, patient will obtain 30-day event monitor from [facility] after discharge today, he will follow-up with Dr. Justin in 2 weeks, Dr. Wilson for his mastoiditis to in 2 weeks, and Dr. Merritt of neurology in 2 weeks. New medications are Plavix 75 mg daily, Lipitor 40 mg daily, and Augmentin 1 tablet twice daily for 10 days. Patient will have physical and Occupational Therapy at home with [facility]. He is discharged in stable condition. He will hold his metoprolol as his heart rate has been in the 50s to low 60s with it being held here. He will check his blood pressure daily and make a log. Patient seen and examined at bedside. He is doing well. No complaints currently. Vital signs reviewed and stable. General: Nontoxic, no distress, appears at stated age Cardiovascular: S1S2 reg, no murmur, positive posterior tibial pulse bilateral, Lungs: CTA bilateral, no rhonchi, no rales, no accessory muscle use Abdominal: Soft, nontender to palpation, no guarding, no appreciable organomegaly Ext: No gross muscle atrophy, no edema b/l lower extremities, no contractures Neuro: CN II-XI grossly intact, no focal neuro deficits Psych: Alert, oriented, appropriate affect A total of 55 minutes of time were spent preparing this complex discharge summary. Patient was discharged on 08/18/2023. This dictation was prepared using [employer] voice recognition software. Though every attempt is made to correct errors during dictation some may still exist. Patient Condition at Discharge: Stable Plan - Discharge Summary Discharge Rx Participant: Yes New Discharge Prescriptions: New Clopidogrel [Plavix] 75 mg PO DAILY #30 tab Amoxic-Pot Clav 875-125Mg [Augmentin 875-125] 1 tab PO BID 10 Days #20 tab Atorvastatin [Lipitor] 40 mg PO DAILY #30 tablet Continue Aspirin [Adult Low Dose Aspirin EC] 81 mg PO DAILY Cholecalciferol [Vitamin D3 (25 Mcg = 1000 Iu)] 25 mcg PO BID Tamsulosin [Flomax] 0.4 mg PO DAILY Betamethasone Dipropionate [Diprolene 0.05% Cream (GEQ)] 1 applic TOPICAL DIRECTED PRN PRN Reason: Rash Discontinued Atorvastatin [Lipitor] 10 mg PO HS Amoxicillin 500 mg PO BID Metoprolol Tartrate 12.5 mg PO BID Discharge Medication List Aspirin [Adult Low Dose Aspirin EC] 81 mg PO DAILY 08/04/22 [History] Tamsulosin [Flomax] 0.4 mg PO DAILY 08/04/22 [History] Betamethasone Dipropionate [Diprolene 0.05% Cream (GEQ)] 1 applic TOPICAL DIRECTED PRN 08/14/23 [History] Cholecalciferol [Vitamin D3 (25 Mcg = 1000 Iu)] 25 mcg PO BID 08/14/23 [History] Amoxic-Pot Clav 875-125Mg [Augmentin 875-125] 1 tab PO BID 10 Days #20 tab 08/18/23 [Rx] Atorvastatin [Lipitor] 40 mg PO DAILY #30 tablet 08/18/23 [Rx] Clopidogrel [Plavix] 75 mg PO DAILY #30 tab 08/18/23 [Rx] Follow up Appointment(s)/Referral(s): Zachary Justin MD [Medical Doctor] - 1 Week Dre Osei MD [Primary Care Provider] - 1-2 days [facility], [NON-STAFF] - Walter Miranda MD [STAFF PHYSICIAN] - 2 Weeks Billy Merritt DO [STAFF PHYSICIAN] - 2 Weeks Patient Instructions/Handouts: Mediterranean Diet (DC) Activity/Diet/Wound Care/Special Instructions: Activity: As tolerated Diet: Heart healthy Special Instructions: Please obtain 30 day heart monitor from [facility] You are being discharged off your metoprolol as your Heart rate has been in the 50s-60s. Please monitor blood pressure daily and bring a log with your to Dr. Brice office. Discharge Disposition: HOME WITH HOME HEALTH SERVICES
--- NOTE | 2023-08-19 12:14 | P.PN ---
Subjective Progress Note Date: 08/18/23 Patient was seen for a follow-up. Patient is laying comfortably in the bed. Patient denies headache. He states he is feeling better. No new focal concerns. Patient denies any numbness or tingling or focal weakness. Patient states that he believes that the stroke happened on Tuesday. He was driving home from [employer] when he suddenly felt like "blah", "out of it". He felt foggy, wiped out, could drive but felt "off". There was no slurred speech noticed. There were no focal symptoms. Objective - Vital Signs Vital signs: Vital Signs Temp 98.5 F 08/18/23 04:00 Pulse 53 L 08/18/23 11:37 Resp 14 08/18/23 11:37 BP 123/67 08/18/23 11:37 Pulse Ox 92 L 08/18/23 11:37 FiO2 Intake & Output 08/17/23 08/18/23 08/18/23 18:59 06:59 18:59 Intake Total 600 10 200 Output Total 1150 550 Balance 600 -1140 -350 Intake: IV 10 200 Invasive Line 2 10 Intake, IV Titration 600 Amount Lactated Ringers 1,000 ml 600 @ 75 mls/hr IV .[id number] [facility] Rx#:[id number] Output: Urine 1150 550 Other: Voiding Method Urinal Urinal Urinal # Voids 2 # Bowel Movements 1 - Exam Patient is alert and awake. He knows it is August and the year is 2023. He knows that he is in [facility] in [facility]. He can name and repeat very well. Rest of the examination nonfocal. - Labs CBC & Chem 7: 08/18/23 07:48 08/18/23 07:48 Labs: Abnormal Lab Results - Last 24 Hours (Table) 08/18/23 08/18/23 Range/Units 07:48 07:48 RBC 3.96 L (4.30-5.90) m/uL MCV 102.7 H (80.0-100.0) fL Plt Count 141 L (150-450) k/uL Sodium 130 L (137-145) mmol/L Calcium 7.5 L (8.4-10.2) mg/dL Total Protein 4.9 L (6.3-8.2) g/dL Albumin 2.6 L (3.5-5.0) g/dL Microbiology - Last 24 Hours (Table) 08/14/23 20:45 Blood Culture - Preliminary Blood 08/14/23 20:30 Blood Culture - Preliminary Blood 08/16/23 15:30 Gram Stain - Preliminary Sputum Assessment and Plan Assessment: * Acute ischemic stroke, numerous, tiny foci of increased signal on DWI involving the left periatrial region, subcortical and cortical regions of the high frontal and high parietal region. Clinically, patient had episode of aphasia, that seems to have resolved. * PFO documented on MIC. * Altered mental status, likely due above (multiple small areas of acute CVA), and also perhaps related to metabolic encephalopathy. Patient has been having high fever, abdominal pain with recent travel to a cruise ship to [facility]. Mentation much improved. * Fever, abdominal, with recent travel to a cruise to [facility]. Fever resolved. * Recent history of pneumonia, being treated with amoxicillin. * History of triple bypass surgery. * Hypertension Plan: * MRI brain revealed on diffusion-weighted imaging, there are numerous tiny foci of increased signal involving the left periatrial region, subcortical and cortical region of the high frontal and high parietal region. I personally reviewed MRI, agree with the findings. The abnormality in the left frontal lobe seen on the CT scan however is chronic in nature. There is also evidence of significant left maxillary sinus disease as well as involving bilateral et hmoid air cells. There is fluid in bilateral mastoid, as well as lower right middle ear. * 2D echo revealed normal left ventricular size and systolic function with EF 55 to 60%. Borderline left ventricular hypertrophy. Questionable right ventricular dilation. Severely increased left atrial diameter. Mild AR. * MIC revealed: Small PFO with bidirectional flow. Positive bubble study with [id number] intracardiac shunting through PFO Moderate functional MR Mild aortic regurgitation Mild calcific atheroma in descending aorta Mild left atrial dilatation * ID also on board, patient currently on Zosyn. * Carotid Doppler revealed no hemodynamically significant ICA stenosis on either side. Antegrade flow in both vertebral arteries. Car Body Mechanic noticed apparent cardiac rhythm during the scan. Correlate clinically. * Hemoglobin A1c 6.1 * Telemetry monitoring so far showing sinus rhythm, sinus bradycardia sometimes going down to the 40s, some PVCs, PACs and couplets. * Fasting lipid panel with cholesterol 75, LDL 23, HDL 42, triglycerides 48. Continue Lipitor 10 mg daily. * B12 395, folate 12.10. TSH is normal. Start vitamin B12 1000 mcg orally daily for borderline B12. * Patient has multiple ischemic strokes noted on MRI of the brain. We will place patient on dual antiplatelet medication with aspirin 81 mg and Plavix 75 mg. Patient was on aspirin monotherapy prior to arrival to hospital. * Patient to undergo event monitor placement to rule out paroxysmal atrial fibrillation outpatient. * Patient will follow-up with neurology, cardiology, and ENT for possible mastoiditis. Patient has received treatment with Zosyn. * Neurologically clear for discharge.
== END 2023-08-18 17:03 | disposition home health service (06) | DRG 64 ==
LOC: EC 18:32 → UNDOADMIN 20:30 → 3NCARDOBS 20:30 → 1SOBS 08-15 10:48 → 3SCARD 08-15 15:57 → 1SOBS 08-15 15:57 → 3SCARD 08-15 20:49 → 1SOBS 08-16 17:26 → UNDODISIN 08-18 11:11
PROVIDERS: ADMIT Internal Medicine; ATTEND Internal Medicine
PROC: B24BZZ4 Ultrasonography of Heart with Aorta, Transesophageal (ICD-10-PCS; principal; 2023-08-18 07:30)
DX: I63.422 Cerebral infarction due to embolism of left anterior cerebral artery (principal); A41.9 Sepsis, unspecified organism; G93.41 Metabolic encephalopathy; F05 Delirium due to known physiological condition; E87.1 Hypo-osmolality and hyponatremia; H70.92 Unspecified mastoiditis, left ear; R47.01 Aphasia; G93.89 Other specified disorders of brain; I11.9 Hypertensive heart disease without heart failure; E86.1 Hypovolemia; I35.1 Nonrheumatic aortic (valve) insufficiency; E78.00 Pure hypercholesterolemia, unspecified; N40.0 Benign prostatic hyperplasia without lower urinary tract symptoms; H92.02 Otalgia, left ear; R11.2 Nausea with vomiting, unspecified; I25.10 Atherosclerotic heart disease of native coronary artery without angina pectoris; R29.700 NIHSS score 0; Z87.01 Personal history of pneumonia (recurrent); Z79.82 Long term (current) use of aspirin; Z79.899 Other long term (current) drug therapy; Z85.51 Personal history of malignant neoplasm of bladder; Z95.1 Presence of aortocoronary bypass graft; Z90.411 Acquired partial absence of pancreas
CPT/HCPCS: 36415; 70450; 70551; 71046; 74177; 80048; 80053; 80061; 81001; 82533; 82607; 82746; 83036; 83605; 83690; 83735; 83880; 83930; 83935; 84100; 84145; 84300; 84443; 85025; 85027; 86140; 87040; 87070; 87205; 87636; 93005; 93306; 93312; 93320; 93325; 93880; 96361; 96365; 96366; 96367; 96368; 96372; 96375; 96376; 99285

== ENCOUNTER → 2023-11-01 | Outpatient (CLI) | payer OTHER ==
[2023-11-01 18:44] LABS: African American GFR (CKD) >90 (>60 ml/min/1.73 sqM); Blood Urea Nitrogen 20 mg/dL (9-20); Non-African American GFR(CKD) 86 (>60 ml/min/1.73 sqM)
--- NOTE | 2023-11-01 20:21 | CT ---
EXAMINATION TYPE: CT angio head neck CT DLP: 374 mGycm, Automated exposure control for dose reduction was used. DATE OF EXAM: 11/01/2023 8:06 PM COMPARISON: 08/14/2023. CLINICAL INDICATION:Male, 77 years old with history of I67.9 CEREBROVASCULAR DISEASE, UNSPECIFIED; PH H, TECHNIQUE: Axially acquired helical CT angiogram of the head and neck was obtained with contrast. Axi al images are supplemented with 3D reconstructions and MIP images which were post-processed at an in dependent workstation. NASCET criteria used. Contrast used: mL of , Oral contrast used: None. FINDINGS: CTA HEAD: No evidence of acute intracranial hemorrhage, mass effect, or midline shift. The ventricles, sulci, a nd cisterns are unremarkable. The visualized portions of the internal carotid arteries, middle cerebral arteries, anterior cerebral arteries, and posterior cerebral arteries are patent. Dolichoectasia of the basilar artery. The basilar and vertebral arteries are patent. CTA NECK: Right Carotid System: The common carotid and external carotid arteries are patent. There is less than 25% stenosis at the c arotid bifurcation secondary to calcified/noncalcified plaque. The rest of the internal carotid arter y is patent. Left Carotid System: The common carotid and external carotid arteries are patent. There is less than 25% stenosis at the c arotid bifurcation secondary to calcified/noncalcified plaque. The rest of the internal carotid arter y is patent. Vertebral arteries are patent without evidence hemodynamically significant stenosis. There is a domin ant left and smaller caliber right vertebral artery. There is a three-vessel aortic arch. The origins of the great vessels are patent. No evidence of hemo dynamically significant stenosis. Upper thorax: IMPRESSION: 1. No evidence of dissection of the cervical internal carotid arteries or vertebral arteries or any e vidence of significant stenosis at the carotid bifurcations. 2. No evidence of intracranial high-grade stenosis or intracranial aneurysm. 3. Dolichoectasia of the basilar artery.
== END | disposition home or self-care (01) ==
LOC: RADCTMAIN 17:29
PROVIDERS: ATTEND Psychiatry & Neurology Neurology
DX: G45.0 Vertebro-basilar artery syndrome (principal); I67.9 Cerebrovascular disease, unspecified; G81.92 Hemiplegia, unspecified affecting left dominant side
CPT/HCPCS: 82565; 84520; 70496; 70498; 36415; Q9967

== ENCOUNTER → 2024-09-22 | Outpatient (CLI) | payer OTHER ==
[2024-09-22 14:19] LABS: HCT 45.1 % (39.6-50.0); HGB 14.5 g/dL (13.0-17.0); MCH 32.4 pg (27.0-32.0); MCHC 32.2 g/dL (32.0-37.0); MCV 100.9 FL (80.0-97.0); NRBC Per 100 WBC 0 X 10*3/uL (0.00-0.01); Platelet Count 193 X 10*3/uL (140-440); RBC 4.47 X 10*6/uL (4.40-5.60); RDW 13.1 % (11.5-14.5)
[2024-09-23 08:19] LABS: ALT 29 U/L (10-49); AST 26 U/L (14-35); Albumin 4.4 g/dL (3.8-4.9); Alkaline Phosphatase 75 U/L (41-126); BUN/Creat Ratio 20.62 Ratio (12.00-20.00); Blood Urea Nitrogen 16.5 mg/dL (9.0-27.0); Calcium 9.1 mg/dL (8.7-10.3); Carbon Dioxide 25.5 mmol/L (21.6-31.8); Chloride 106 mmol/L (96-109); Glucose 119 mg/dL (70-110); LDL Cholesterol,Calculated 32.5 mg/dL (0.0-131.0); Potassium 4.7 mmol/L (3.5-5.5); Sodium 140 mmol/L (135-145); Total Bilirubin 0.7 mg/dL (0.3-1.2); Total Protein 6.4 g/dL (6.2-8.2); VLDL Calculation 8.54 mg/dL (5.00-40.00)
[2024-09-23 09:03] LABS: NT-Pro-B-Type Natriuretic Pept 97 pg/mL (0-450)
== END | disposition home or self-care (01) ==
LOC: LABWHC1 10:08
PROVIDERS: ATTEND Student in an Organized Health Care Education/Training Program
DX: I50.9 Heart failure, unspecified (principal); E11.9 Type 2 diabetes mellitus without complications; E78.5 Hyperlipidemia, unspecified; D72.9 Disorder of white blood cells, unspecified; R79.89 Other specified abnormal findings of blood chemistry
CPT/HCPCS: 36415; 80053; 80061; 83036; 83880; 85027

== ENCOUNTER 2024-11-26 20:26 | Emergency (ER) | payer OTHER ==
--- NOTE | 2024-11-26 21:14 | ED ---
General Adult HPI - General Chief complaint: ENT Stated complaint: Nose Bleed-blood thinners Time Seen by Provider: 11/26/24 20:54 Source: patient Mode of arrival: wheelchair Limitations: no limitations - History of Present Illness Initial comments: 78-year-old male presents to the emergency department for nosebleed. Patient states that this started around 8 PM. He notes that he blew his nose and his nose started bleeding following this. He notes that most of the blood initially started from the left nostril but then was coming out of both. He reports that he is on Plavix. He is had difficulty controlling the bleeding at home prompting his presentation to the emergency department today. He denies any lightheadedness, shortness of breath. Denies any recent fever or illness. - Related Data Home Medications Medication Instructions Recorded Confirmed Aspirin [Adult Low Dose Aspirin EC] 81 mg PO DAILY 08/04/22 08/14/23 Tamsulosin [Flomax] 0.4 mg PO DAILY 08/04/22 08/15/23 Betamethasone Dipropionate 1 applic TOPICAL DIRECTED PRN 08/14/23 08/14/23 [Betamethasone Dipropionate 0.05% Cream] Cholecalciferol [Vitamin D3 (25 25 mcg PO BID 08/14/23 08/14/23 Mcg = 1000 Iu)] Previous Rx's Medication Instructions Recorded Amoxic-Pot Clav 875-125Mg 1 tab PO BID 10 Days #20 tab 08/18/23 [Augmentin 875-125] Atorvastatin [Lipitor] 40 mg PO DAILY #30 tablet 08/18/23 Clopidogrel [Plavix] 75 mg PO DAILY #30 tab 08/18/23 Allergies Allergy/AdvReac Type Severity Reaction Status Date / Time No Known Allergies Allergy Verified 11/26/24 20:29 Review of Systems ROS Statement: Those systems with pertinent positive or pertinent negative responses have been documented in the HPI. ROS Other: All systems not noted in ROS Statement are negative. Past Medical History Past Medical History: Cancer Additional Past Medical History / Comment(s): BLADDER CANCER History of Any Multi-Drug Resistant Organisms: None Reported Past Surgical History: Appendectomy, Back Surgery, Bladder Surgery, Tonsillectomy Additional Past Surgical History / Comment(s): oral surgery Past Anesthesia/Blood Transfusion Reactions: No Reported Reaction Past Psychological History: No Psychological Hx Reported Smoking Status: Never smoker Past Alcohol Use History: Occasional Past Drug Use History: None Reported - Past Family History Father Family Medical History: Cancer Additional Family Medical History / Comment(s): BLADDER CANCER General Exam Limitations: no limitations General appearance: alert, in no apparent distress Head exam: Present: atraumatic, normocephalic, normal inspection Eye exam: Present: normal appearance, PERRL, EOMI. Absent: scleral icterus, conjunctival injection, periorbital swelling ENT exam: Present: mucous membranes moist, other (Active bleeding initially to the left nare in the region of Kesselbach's plexus, hemostasis achieved). Absent: normal oropharynx Neck exam: Present: normal inspection. Absent: tenderness, meningismus, lymphadenopathy Respiratory exam: Present: normal lung sounds bilaterally. Absent: respiratory distress, wheezes, rales, rhonchi, stridor Cardiovascular Exam: Present: regular rate, normal rhythm, normal heart sounds. Absent: systolic murmur, diastolic murmur, rubs, gallop, clicks Neurological exam: Present: alert, oriented X3 Psychiatric exam: Present: normal affect, normal mood Skin exam: Present: warm, dry. Absent: intact (See above) Course Vital Signs 11/26/24 11/26/24 11/26/24 20:27 21:42 22:00 Temperature 98.4 F Pulse Rate 68 67 66 Respiratory 18 18 18 Rate Blood Pressure 191/94 169/99 153/90 O2 Sat by Pulse 97 95 95 Oximetry 11/26/24 23:00 Temperature 98.1 F Pulse Rate 67 Respiratory 16 Rate Blood Pressure 151/83 O2 Sat by Pulse 95 Oximetry Medical Decision Making - Medical Decision Making Was pt. sent in by a medical professional or institution (, PA, DEVOPS ENGINEER, urgent care, hospital, or [facility]...) When possible be specific @ -No Did you speak to anyone other than the patient for history (EMS, parent, family, police, friend...)? What history was obtained from this source @ -No Did you review nursing and triage notes (agree or disagree)? Why? @ -I reviewed and agree with nursing and triage notes Were old charts reviewed (outside hosp., previous admission, EMS record, old EKG, old radiological studies, urgent care reports/EKG's, [facility] records)? Report findings @ -No old charts were reviewed Differential Diagnosis (chest pain, altered mental status, abdominal pain women, abdominal pain men, vaginal bleeding, weakness, fever, dyspnea, syncope, headache, dizziness, GI bleed, back pain, seizure, CVA, palpatations, mental health, musculoskeletal)? @ -Epistaxis, hypertension, URI, this list is not inclusive EKG interpreted by me (3pts min.). @ -None X-rays interpreted by me (1pt min.). @ -None done CT interpreted by me (1pt min.). @ -None done U/S interpreted by me (1pt. min.). @ -None done What testing was considered but not performed or refused? (CT, X-rays, U/S, labs)? Why? @ -None What meds were considered but not given or refused? Why? @ -None Did you discuss the management of the patient with other professionals (professionals i.e. , PA, DEVOPS ENGINEER, lab, RT, psych nurse, social work therapist, spanish instructor, teacher, chief marketing officer, egg caser)? Give summary @ -No Was smoking cessation discussed for >3mins.? @ -No Was critical care preformed (if so, how long)? @ -No Were there social determinants of health that impacted care today? How? (Homelessness, low income, unemployed, alcoholism, drug addiction, transportation, low edu. Level, literacy, decrease access to med. care, correction, rehab)? @ -No Was there de-escalation of care discussed even if they declined (Discuss DNR or withdrawal of care, Hospice)? DNR status @ -No What co-morbidities impacted this encounter? (DM, HTN, Smoking, COPD, CAD, Cancer, CVA, ARF, Chemo, Hep., AIDS, mental health diagnosis, sleep apnea, morbid obesity)? @ -None Was patient admitted / discharged? Hospital course, mention meds given and route, prescriptions, significant lab abnormalities, going to OR and other pertinent info. @ -Discharge. Patient presented emergency department for nosebleed. Clamp was initially applied. Following this the patient blew out present clot and Afrin was applied and the nose clamp was reapplied. The patient was advised to lean forward. Following this the bleeding had significantly slowed to ceased and the area of bleeding was identified in the left nare. Silver nitrate was applied. Patient discharged home. He is advised on care at home and return precautions. He is understanding agreeable with plan. Patient stable at time of discharge. Case discussed with Dr. Small. Undiagnosed new problem with uncertain prognosis? @ -No Drug Therapy requiring intensive monitoring for toxicity (Heparin, Nitro, Insulin, Cardizem)? @ -No Were any procedures done? @ -No Diagnosis/symptom? @ -Epistaxis Acute, or Chronic, or Acute on Chronic? @ -Acute Uncomplicated (without systemic symptoms) or Complicated (systemic symptoms)? @ -Uncomplicated Side effects of treatment? @ -No Exacerbation, Progression, or Severe Exacerbation? @ -No Poses a threat to life or bodily function? How? (Chest pain, [place], [place], pneumonia, PE, COPD, DKA, ARF, appy, cholecystitis, CVA, Diverticulitis, Homicidal, Suicidal, threat to staff... and all critical care pts) @ -No Disposition Clinical Impression: Epistaxis Disposition: HOME SELF-CARE Condition: Stable Instructions (If sedation given, give patient instructions): Nosebleed (ED) Additional Instructions: Please follow-up with your doctor. Return to the emergency department for new or worsening symptoms. Is patient prescribed a controlled substance at d/c from ED?: No Referrals: Dre Osei MD [Primary Care Provider] - 1-2 days
[2024-11-26] MEDS: OXYMETAZOLINE 0.05% NASL SPRAY 1 SPRAY BOTTLE NASAL STA (21:17)
[2024-11-26] MEDS: SILVER NITRATE APPLICATOR 1 EACH STICK..EA. TOPICAL STA (22:20)
[2024-11-26 23:05] VITALS: BP 151/83; PULSE 67; RESP 16; TEMP 98.1
== END 2024-11-26 23:00 | disposition home or self-care (01) ==
LOC: EC 20:26
DX: R04.0 Epistaxis (principal)
CPT/HCPCS: 99283